=== PATIENT | male | born 1970 | race Caucasian/White ===

== ENCOUNTER 2017-11-26 10:19 | Inpatient (IN) | payer OTHER ==
[2017-11-26] MEDS: NS 1,000 ML IV ×2 (11:58→13:35)
[2017-11-26] MEDS: MORPHINE 4 MG/ML 1ML VIAL/SYRINGE (J2270) IV ×2 (11:58→13:36)
[2017-11-26 12:38] LABS: BASO # 0.2 10^3/uL (0.0-0.2); BASO % 2.2 % (0.0-1.0); EOS # 0.3 10^3/uL (0.0-0.50); EOS % 3.3 % (0.0-3.0); HEMATOCRIT 26.1 % (42.0-52.0); HEMOGLOBIN 9.1 g/dl (13.5-17.5); LYMPH # 1.6 10^3/uL (1.5-4.5); LYMPH % 17.9 % (24.0-44.0); MEAN CORPUSCULAR HEMOGLOBIN 34.5 pg (27.0-33.0); MEAN CORPUSCULAR HGB CONC 34.9 g/dl (32.0-36.5); MEAN CORPUSCULAR VOLUME 98.9 fl (80.0-96.0); MONO # 1.3 10^3/uL (0.0-0.8); MONO % 14.7 % (0.0-5.0); NEUTROPHILS # 5.5 10^3/uL (1.8-7.7); NEUTROPHILS % 60.9 % (36.0-66.0); PLATELET COUNT, AUTOMATED 136 10^3/uL (150-450); RED BLOOD COUNT 2.64 10^6/uL (4.30-6.10); RED CELL DISTRIBUTION WIDTH 22.1 % (11.5-14.5); WHITE BLOOD COUNT 9.1 10^3/uL (4.0-10.0)
[2017-11-26 12:57] LABS: LACTIC ACID SEPSIS PROTOCOL 1.7 MMOL/L (0.4-2.0)
[2017-11-26 13:34] LABS: ALBUMIN/GLOBULIN RATIO 0.33 (1.00-1.93); ALKALINE PHOSPHATASE 75 U/L (45-117); ALT/SGPT 36 U/L (12-78); ANION GAP 12 MEQ/L (8-16); AST/SGOT 96 U/L (7-37); BILIRUBIN,DIRECT 2.4 MG/DL (0.0-0.2); BILIRUBIN,TOTAL 4.6 MG/DL (0.2-1.0); BLOOD UREA NITROGEN 4 MG/DL (7-18); CALCIUM LEVEL 7.4 MG/DL (8.5-10.1); CARBON DIOXIDE LEVEL 20 MEQ/L (21-32); CHLORIDE LEVEL 95 MEQ/L (98-107); CREATININE FOR GFR 0.54 MG/DL (0.70-1.30); GLOMERULAR FILTRATION RATE > 60.0 (>60); GLUCOSE, FASTING 89 MG/DL (70-100); LIPASE 173 U/L (73-393); POTASSIUM SERUM 3.8 MEQ/L (3.5-5.1); SODIUM LEVEL 127 MEQ/L (136-145)
[2017-11-26] MEDS ORDERED: ISOVUE-370 76% 100ML VIAL (Q9967) As Ordered (13:35)
[2017-11-26 14:55] LABS: KETONE, URINE AUTO RFX NEGATIVE (NEGATIVE); LEUKOCYTE ESTERASE UR AUTO RFX NEGATIVE (NEGATIVE); NITRITE, URINE AUTO RFX NEGATIVE (NEGATIVE); RBC, URINE AUTO RFX 1 /HPF (0-3); SPECIFIC GRAVITY UR AUTO RFX 1.018 (1.002-1.035); SQUAM EPITHELIAL CELL UR AURFX 0 /HPF (0-6); WBC, URINE AUTO RFX 1 /HPF (0-3)
[2017-11-26] MEDS ORDERED: LORazepam 2 MG TAB PO (15:30)
[2017-11-26] MEDS: HYDROMORPHONE HCL 0.5 MG/ 0.5 ML SYRINGE (J1170 PER 1) IV (15:33)
[2017-11-26] MEDS: NICOTINE 21MG/24HR 1 EA TRANSDERMAL TD (16:00)
[2017-11-26 16:13] LABS: INR 1.65; PROTHROMBIN TIME 19.8 SECONDS (12.1-14.4)
[2017-11-26] MEDS: diphenhydrAMINE INJ 50MG/ML VIAL (J1200) IV (16:14)
[2017-11-26] MEDS: OXAZEPAM 15 MG CAP PO (16:15)
[2017-11-26] MEDS: FOLIC ACID 1 MG TAB PO (16:15)
[2017-11-26] MEDS: MULTIVITAMINS/MINERALS THERAP 1 TAB PO (16:15)
[2017-11-26] MEDS ORDERED: FUROSEMIDE 20 MG/2 ML VIAL (J1940) IV (17:00)
[2017-11-26] MEDS ORDERED: ONDANSETRON 4MG/2ML VIAL (J2405) IV (17:30)
[2017-11-26] MEDS: FUROSEMIDE 40 MG/4 ML VIAL (J1940) IV (18:42)
[2017-11-26] MEDS: cefTRIAXone SOD 1 GM in D5W MINI-BAG PLUS 50 ML IV (18:43)
[2017-11-26 19:59] LABS: AMMONIA 43 uMOL/L (<32)
[2017-11-26 20:10] LABS: ANION GAP 10 MEQ/L (8-16); BLOOD UREA NITROGEN 2 MG/DL (7-18); CALCIUM LEVEL 7.1 MG/DL (8.5-10.1); CARBON DIOXIDE LEVEL 22 MEQ/L (21-32); CHLORIDE LEVEL 99 MEQ/L (98-107); CREATININE FOR GFR 0.46 MG/DL (0.70-1.30); FREE THYROXINE INDEX 2.3 % (1.4-3.8); GLOMERULAR FILTRATION RATE > 60.0 (>60); GLUCOSE, FASTING 95 MG/DL (70-100); POTASSIUM SERUM 3.1 MEQ/L (3.5-5.1); SODIUM LEVEL 131 MEQ/L (136-145); T UPTAKE 41 % (33-40); THYROXINE (T4) 5.7 UG/DL (4.5-12.0)
[2017-11-26] MEDS: SENOKOT S TAB PO (20:25)
[2017-11-26] MEDS: THIAMINE 100 MG TAB PO (20:25)
[2017-11-26] MEDS: OXAZEPAM 10 MG CAP PO (20:26)
[2017-11-26] MEDS: PANTOPRAZOLE 40MG TAB (PROTONIX) PO (20:26)
[2017-11-26] MEDS ORDERED: THIAMINE 100 MG TAB PO (21:00)
[2017-11-26] MEDS: POTASSIUM CHLORIDE 10 MEQ SR TABLET PO (22:06)
[2017-11-26 23:16] LABS: TYPE AND SCREEN 1
[2017-11-27 00:20] LABS: ANION GAP 8 MEQ/L (8-16); BLOOD UREA NITROGEN 3 MG/DL (7-18); CALCIUM LEVEL 7.1 MG/DL (8.5-10.1); CARBON DIOXIDE LEVEL 23 MEQ/L (21-32); CHLORIDE LEVEL 100 MEQ/L (98-107); CREATININE FOR GFR 0.44 MG/DL (0.70-1.30); GLOMERULAR FILTRATION RATE > 60.0 (>60); GLUCOSE, FASTING 81 MG/DL (70-100); SODIUM LEVEL 131 MEQ/L (136-145)
[2017-11-27] MEDS: OXAZEPAM 15 MG CAP PO ×4 (00:57→18:04)
[2017-11-27 05:09] LABS: TYPE AND SCREEN 1
[2017-11-27 05:27] LABS: HEMATOCRIT 23.1 % (42.0-52.0); HEMOGLOBIN 7.9 g/dl (13.5-17.5); MEAN CORPUSCULAR HEMOGLOBIN 34.2 pg (27.0-33.0); MEAN CORPUSCULAR HGB CONC 34.2 g/dl (32.0-36.5); PLATELET COUNT, AUTOMATED 121 10^3/uL (150-450); RED BLOOD COUNT 2.31 10^6/uL (4.30-6.10); RED CELL DISTRIBUTION WIDTH 22.4 % (11.5-14.5)
[2017-11-27 05:35] LABS: INR 1.59; PROTHROMBIN TIME 19.2 SECONDS (12.1-14.4)
[2017-11-27 05:58] LABS: ALBUMIN 2.6 GM/DL (3.2-5.2); ALBUMIN/GLOBULIN RATIO 0.49 (1.00-1.93); ALKALINE PHOSPHATASE 63 U/L (45-117); ALT/SGPT 32 U/L (12-78); ANION GAP 10 MEQ/L (8-16); AST/SGOT 68 U/L (7-37); BILIRUBIN,TOTAL 4.4 MG/DL (0.2-1.0); BLOOD UREA NITROGEN 3 MG/DL (7-18); CALCIUM LEVEL 7.3 MG/DL (8.5-10.1); CARBON DIOXIDE LEVEL 22 MEQ/L (21-32); CHLORIDE LEVEL 100 MEQ/L (98-107); CREATININE FOR GFR 0.42 MG/DL (0.70-1.30); GLOMERULAR FILTRATION RATE > 60.0 (>60); GLUCOSE, FASTING 87 MG/DL (70-100); MAGNESIUM LEVEL 1.2 MG/DL (1.8-2.4); POTASSIUM SERUM 3.6 MEQ/L (3.5-5.1); SODIUM LEVEL 132 MEQ/L (136-145); TOTAL PROTEIN 7.9 GM/DL (6.4-8.2)
[2017-11-27] MEDS: MAG SULF 1GM/100ML (MAG RUN) 1 GM in APPROPRIATE DILUENT 1 EA IV ×2 (06:36→08:58)
[2017-11-27 08:00] LABS: PROTHROMBIN TIME 17.4 SECONDS (12.1-14.4)
[2017-11-27] MEDS: FUROSEMIDE 20 MG/2 ML VIAL (J1940) IV ×2 (08:58→18:04)
[2017-11-27] MEDS: NICOTINE 21MG/24HR 1 EA TRANSDERMAL TD (08:58)
[2017-11-27] MEDS: THIAMINE 100 MG TAB PO (08:58)
[2017-11-27] MEDS: SPIRONOLACTONE 25 MG TAB PO (08:59)
[2017-11-27] MEDS: PANTOPRAZOLE 40MG TAB (PROTONIX) PO (08:59)
[2017-11-27] MEDS: SENOKOT S TAB PO ×2 (08:59→21:15)
[2017-11-27] MEDS: POTASSIUM CHLORIDE 10 MEQ SR TABLET PO ×3 (08:59→21:16)
[2017-11-27] MEDS: MULTIVITAMINS/MINERALS THERAP 1 TAB PO (08:59)
[2017-11-27] MEDS: FOLIC ACID 1 MG TAB PO (08:59)
[2017-11-27 09:44] LABS: TYPE AND SCREEN 1
[2017-11-27] MEDS: SLF 3 ML SYR IV ×2 (11:28→21:16)
[2017-11-27] MEDS ORDERED: SLF 3 ML SYR IV (11:30)
[2017-11-27] MEDS: MORPHINE 4 MG/ML 1ML VIAL/SYRINGE (J2270) IV ×2 (11:36→18:05)
[2017-11-27 13:16] LABS: ANION GAP 9 MEQ/L (8-16); BLOOD UREA NITROGEN 3 MG/DL (7-18); CALCIUM LEVEL 7.5 MG/DL (8.5-10.1); CARBON DIOXIDE LEVEL 26 MEQ/L (21-32); CHLORIDE LEVEL 99 MEQ/L (98-107); CREATININE FOR GFR 0.54 MG/DL (0.70-1.30); GLOMERULAR FILTRATION RATE > 60.0 (>60); GLUCOSE, FASTING 153 MG/DL (70-100); POTASSIUM SERUM 3.1 MEQ/L (3.5-5.1); SODIUM LEVEL 134 MEQ/L (136-145)
[2017-11-27 14:10] LABS: MAGNESIUM LEVEL 1.8 MG/DL (1.8-2.4)
[2017-11-27 14:27] LABS: HEPATITIS C VIRUS ABY INDEX > 11.0 INDEX (<0.8)
[2017-11-27 17:10] LABS: SOURCE, BODY FLUID ALBUMIN ASCITES; SOURCE, BODY FLUID GLUCOSE ASCITES; SOURCE, BODY FLUID TOT PROTEIN ASCITES; TOTAL PROTEIN, BODY FLUID 1.9 G/DL (NOT ESTABLISHED)
[2017-11-27 17:16] LABS: APPEARANCE, BODY FLUID CLEAR (CLEAR); ASCITES FL COLOR YELLOW (COLORLESS); SOURCE, BODY FLUID ASCITES; SPEC. GRAVITY BODY FLUIDS 1.015 (NOT ESTABLISHED)
[2017-11-27 17:18] LABS: OSMOLALITY URINE 326 MOSM/KG (500-800)
[2017-11-27 17:26] LABS: BF MONONUCLEAR CELL % 78.2 % (0-0); BF POLYMORPHONUCLEAR CELL % 21.8 % (0-0); RBC BODY FLUID < 2 10^3/uL (<2); WBC BODY FLUID 69 /uL (0-10)
[2017-11-27 17:29] LABS: BF DIFF IF INDICATED? YES (NO)
[2017-11-27] MEDS: cefTRIAXone SOD 1 GM in D5W MINI-BAG PLUS 50 ML IV (18:03)
[2017-11-27] MEDS: MAGNESIUM OXIDE 400 MG TAB (MAG-OX) PO (18:04)
[2017-11-27 18:18] LABS: CHLORIDE,RANDOM URINE 135 MEQ/L; CREATININE,RANDOM URINE 40.3 MG/DL; SODIUM,RANDOM URINE 89 MEQ/L; TOTAL PROTEIN,RANDOM URINE 10.5 MG/DL (0.0-12.0)
[2017-11-27 18:26] LABS: ANION GAP 9 MEQ/L (8-16); BLOOD UREA NITROGEN 4 MG/DL (7-18); CALCIUM LEVEL 7.4 MG/DL (8.5-10.1); CARBON DIOXIDE LEVEL 24 MEQ/L (21-32); CHLORIDE LEVEL 100 MEQ/L (98-107); CREATININE FOR GFR 0.75 MG/DL (0.70-1.30); GLOMERULAR FILTRATION RATE > 60.0 (>60); GLUCOSE, FASTING 161 MG/DL (70-100); POTASSIUM SERUM 3.6 MEQ/L (3.5-5.1); SODIUM LEVEL 133 MEQ/L (136-145)
[2017-11-27] MEDS: EUCERIN 120GM CREAM TOP (21:15)
[2017-11-28 00:16] LABS: ANION GAP 7 MEQ/L (8-16); BLOOD UREA NITROGEN 5 MG/DL (7-18); CALCIUM LEVEL 7.5 MG/DL (8.5-10.1); CARBON DIOXIDE LEVEL 25 MEQ/L (21-32); CHLORIDE LEVEL 101 MEQ/L (98-107); CREATININE FOR GFR 0.57 MG/DL (0.70-1.30); GLOMERULAR FILTRATION RATE > 60.0 (>60); GLUCOSE, FASTING 99 MG/DL (70-100); POTASSIUM SERUM 3.8 MEQ/L (3.5-5.1); SODIUM LEVEL 133 MEQ/L (136-145)
[2017-11-28] MEDS: OXAZEPAM 15 MG CAP PO ×4 (00:37→17:08)
[2017-11-28] MEDS: MORPHINE 4 MG/ML 1ML VIAL/SYRINGE (J2270) IV ×3 (00:49→18:49)
[2017-11-28] MEDS: SLF 3 ML SYR IV ×3 (05:48→21:10)
[2017-11-28 05:56] LABS: HEMOGLOBIN 7.7 g/dl (13.5-17.5); MEAN CORPUSCULAR HEMOGLOBIN 34.2 pg (27.0-33.0); MEAN CORPUSCULAR HGB CONC 33.5 g/dl (32.0-36.5); MEAN CORPUSCULAR VOLUME 102.2 fl (80.0-96.0); PLATELET COUNT, AUTOMATED 115 10^3/uL (150-450); RED BLOOD COUNT 2.25 10^6/uL (4.30-6.10); RED CELL DISTRIBUTION WIDTH 22.4 % (11.5-14.5); WHITE BLOOD COUNT 6.3 10^3/uL (4.0-10.0)
[2017-11-28 06:06] LABS: INR 1.69; PROTHROMBIN TIME 20.2 SECONDS (12.1-14.4)
[2017-11-28 06:23] LABS: ALBUMIN 2.4 GM/DL (3.2-5.2); ALBUMIN/GLOBULIN RATIO 0.49 (1.00-1.93); ALKALINE PHOSPHATASE 72 U/L (45-117); ALT/SGPT 28 U/L (12-78); ANION GAP 8 MEQ/L (8-16); AST/SGOT 50 U/L (7-37); BILIRUBIN,TOTAL 2.5 MG/DL (0.2-1.0); BLOOD UREA NITROGEN 4 MG/DL (7-18); CALCIUM LEVEL 7.5 MG/DL (8.5-10.1); CARBON DIOXIDE LEVEL 26 MEQ/L (21-32); CHLORIDE LEVEL 101 MEQ/L (98-107); CREATININE FOR GFR 0.62 MG/DL (0.70-1.30); GLOMERULAR FILTRATION RATE > 60.0 (>60); GLUCOSE, FASTING 94 MG/DL (70-100); MAGNESIUM LEVEL 1.3 MG/DL (1.8-2.4); POTASSIUM SERUM 3.8 MEQ/L (3.5-5.1); SODIUM LEVEL 135 MEQ/L (136-145); TOTAL PROTEIN 7.3 GM/DL (6.4-8.2)
[2017-11-28] MEDS: MAG SULF 1GM/100ML (MAG RUN) 1 GM in APPROPRIATE DILUENT 1 EA IV ×3 (08:38→10:52)
[2017-11-28] MEDS: NICOTINE 21MG/24HR 1 EA TRANSDERMAL TD (09:12)
[2017-11-28] MEDS: FUROSEMIDE 20 MG/2 ML VIAL (J1940) IV ×2 (09:14→17:09)
[2017-11-28] MEDS: SENOKOT S TAB PO ×2 (09:17→21:10)
[2017-11-28] MEDS: EUCERIN 120GM CREAM TOP ×2 (09:17→21:08)
[2017-11-28] MEDS: MULTIVITAMINS/MINERALS THERAP 1 TAB PO (09:17)
[2017-11-28] MEDS: SPIRONOLACTONE 25 MG TAB PO (09:18)
[2017-11-28] MEDS: THIAMINE 100 MG TAB PO (09:18)
[2017-11-28] MEDS: FOLIC ACID 1 MG TAB PO (09:18)
[2017-11-28] MEDS: POTASSIUM CHLORIDE 10 MEQ SR TABLET PO ×2 (09:18→21:09)
[2017-11-28] MEDS: PANTOPRAZOLE 40MG TAB (PROTONIX) PO (09:18)
[2017-11-28 09:46] LABS: AMMONIA 72 uMOL/L (<32)
[2017-11-28 12:41] LABS: ANION GAP 7 MEQ/L (8-16); BLOOD UREA NITROGEN 5 MG/DL (7-18); CALCIUM LEVEL 7.7 MG/DL (8.5-10.1); CARBON DIOXIDE LEVEL 27 MEQ/L (21-32); CHLORIDE LEVEL 101 MEQ/L (98-107); CREATININE FOR GFR 0.61 MG/DL (0.70-1.30); GLOMERULAR FILTRATION RATE > 60.0 (>60); GLUCOSE, FASTING 103 MG/DL (70-100); POTASSIUM SERUM 4.1 MEQ/L (3.5-5.1); SODIUM LEVEL 135 MEQ/L (136-145)
[2017-11-28 14:11] LABS: IMMEDIATE SPIN CROSSMATCH 1 1
[2017-11-28] MEDS: LACTULOSE 20 GM/30 ML SYRUP UD PO ×2 (14:12→21:10)
[2017-11-28] MEDS: cefTRIAXone SOD 1 GM in D5W MINI-BAG PLUS 50 ML IV (17:08)
[2017-11-28 18:03] LABS: MAGNESIUM LEVEL 1.9 MG/DL (1.8-2.4)
[2017-11-28] MEDS: MAGNESIUM OXIDE 400 MG TAB (MAG-OX) PO (18:39)
[2017-11-29] MEDS: OXAZEPAM 15 MG CAP PO ×3 (00:28→17:35)
[2017-11-29] MEDS: MORPHINE 4 MG/ML 1ML VIAL/SYRINGE (J2270) IV ×2 (02:39→07:57)
[2017-11-29] MEDS ORDERED: LORazepam 2 MG TAB PO (03:00)
[2017-11-29] MEDS: LACTULOSE 20 GM/30 ML SYRUP UD PO ×3 (05:26→20:47)
[2017-11-29] MEDS: SLF 3 ML SYR IV ×3 (05:28→21:00)
[2017-11-29 06:20] LABS: HEMATOCRIT 26.2 % (42.0-52.0); HEMOGLOBIN 8.8 g/dl (13.5-17.5); MEAN CORPUSCULAR HEMOGLOBIN 33.6 pg (27.0-33.0); MEAN CORPUSCULAR HGB CONC 33.6 g/dl (32.0-36.5); PLATELET COUNT, AUTOMATED 123 10^3/uL (150-450); RED BLOOD COUNT 2.62 10^6/uL (4.30-6.10); RED CELL DISTRIBUTION WIDTH 23.5 % (11.5-14.5); WHITE BLOOD COUNT 7.4 10^3/uL (4.0-10.0)
[2017-11-29 06:27] LABS: INR 1.72; PROTHROMBIN TIME 20.5 SECONDS (12.1-14.4)
[2017-11-29 06:42] LABS: AMMONIA 79 uMOL/L (<32)
[2017-11-29 06:48] LABS: ALBUMIN 2.4 GM/DL (3.2-5.2); ALBUMIN/GLOBULIN RATIO 0.49 (1.00-1.93); ALKALINE PHOSPHATASE 78 U/L (45-117); ALT/SGPT 32 U/L (12-78); ANION GAP 7 MEQ/L (8-16); AST/SGOT 70 U/L (7-37); BLOOD UREA NITROGEN 5 MG/DL (7-18); CARBON DIOXIDE LEVEL 27 MEQ/L (21-32); CHLORIDE LEVEL 102 MEQ/L (98-107); CREATININE FOR GFR 0.61 MG/DL (0.70-1.30); GLOMERULAR FILTRATION RATE > 60.0 (>60); GLUCOSE, FASTING 109 MG/DL (70-100); MAGNESIUM LEVEL 1.7 MG/DL (1.8-2.4); POTASSIUM SERUM 4.2 MEQ/L (3.5-5.1); SODIUM LEVEL 136 MEQ/L (136-145); TOTAL PROTEIN 7.3 GM/DL (6.4-8.2)
[2017-11-29] MEDS: SENOKOT S TAB PO ×2 (09:00→20:47)
[2017-11-29] MEDS: IPRATROPIUM 0.5MG/ALBUTEROL 2.5MG INH SOL UD 3ML (DUONEB)(J7620) NEB (09:08)
[2017-11-29] MEDS: FOLIC ACID 1 MG TAB PO (09:20)
[2017-11-29] MEDS: rifAXIMin 550 MG TAB (XIFAXAN) PO ×2 (09:20→20:47)
[2017-11-29] MEDS: PANTOPRAZOLE 40MG TAB (PROTONIX) PO (09:20)
[2017-11-29] MEDS: SPIRONOLACTONE 25 MG TAB PO (09:21)
[2017-11-29] MEDS: MULTIVITAMINS/MINERALS THERAP 1 TAB PO (09:21)
[2017-11-29] MEDS: THIAMINE 100 MG TAB PO (09:21)
[2017-11-29] MEDS: MAG SULF 1GM/100ML (MAG RUN) 1 GM in APPROPRIATE DILUENT 1 EA IV ×2 (09:22→10:37)
[2017-11-29] MEDS: POTASSIUM CHLORIDE 10 MEQ SR TABLET PO ×2 (09:22→20:47)
[2017-11-29] MEDS: NICOTINE 21MG/24HR 1 EA TRANSDERMAL TD (09:22)
[2017-11-29] MEDS: FUROSEMIDE 20 MG/2 ML VIAL (J1940) IV ×2 (09:23→17:34)
[2017-11-29] MEDS: EUCERIN 120GM CREAM TOP ×2 (09:23→20:47)
[2017-11-29] MEDS: cefTRIAXone SOD 1 GM in D5W MINI-BAG PLUS 50 ML IV (17:35)
[2017-11-30] MEDS: LACTULOSE 20 GM/30 ML SYRUP UD PO ×3 (05:33→20:57)
[2017-11-30] MEDS: SLF 3 ML SYR IV ×3 (05:33→21:38)
[2017-11-30] MEDS: OXAZEPAM 15 MG CAP PO ×2 (05:33→17:04)
[2017-11-30] MEDS: MORPHINE 4 MG/ML 1ML VIAL/SYRINGE (J2270) IV ×2 (05:38→20:54)
[2017-11-30 05:57] LABS: HEMATOCRIT 26.8 % (42.0-52.0); HEMOGLOBIN 9.1 g/dl (13.5-17.5); MEAN CORPUSCULAR HEMOGLOBIN 33.2 pg (27.0-33.0); MEAN CORPUSCULAR VOLUME 97.8 fl (80.0-96.0); PLATELET COUNT, AUTOMATED 144 10^3/uL (150-450); RED BLOOD COUNT 2.74 10^6/uL (4.30-6.10); WHITE BLOOD COUNT 8.3 10^3/uL (4.0-10.0)
[2017-11-30 06:04] LABS: INR 1.79; PROTHROMBIN TIME 21.1 SECONDS (12.1-14.4)
[2017-11-30 06:16] LABS: AMMONIA 48 uMOL/L (<32)
[2017-11-30 06:18] LABS: ALBUMIN 2.4 GM/DL (3.2-5.2); ALBUMIN/GLOBULIN RATIO 0.48 (1.00-1.93); ALKALINE PHOSPHATASE 76 U/L (45-117); ALT/SGPT 32 U/L (12-78); ANION GAP 7 MEQ/L (8-16); AST/SGOT 68 U/L (7-37); BILIRUBIN,TOTAL 2.5 MG/DL (0.2-1.0); BLOOD UREA NITROGEN 6 MG/DL (7-18); CALCIUM LEVEL 8.1 MG/DL (8.5-10.1); CARBON DIOXIDE LEVEL 28 MEQ/L (21-32); CHLORIDE LEVEL 100 MEQ/L (98-107); GLOMERULAR FILTRATION RATE > 60.0 (>60); GLUCOSE, FASTING 85 MG/DL (70-100); MAGNESIUM LEVEL 1.3 MG/DL (1.8-2.4); POTASSIUM SERUM 4.1 MEQ/L (3.5-5.1); SODIUM LEVEL 135 MEQ/L (136-145); TOTAL PROTEIN 7.4 GM/DL (6.4-8.2)
[2017-11-30] MEDS: FOLIC ACID 1 MG TAB PO (08:23)
[2017-11-30] MEDS: THIAMINE 100 MG TAB PO (08:23)
[2017-11-30] MEDS: PANTOPRAZOLE 40MG TAB (PROTONIX) PO (08:23)
[2017-11-30] MEDS: rifAXIMin 550 MG TAB (XIFAXAN) PO ×2 (08:23→20:37)
[2017-11-30] MEDS: POTASSIUM CHLORIDE 10 MEQ SR TABLET PO ×2 (08:23→20:38)
[2017-11-30] MEDS: SPIRONOLACTONE 25 MG TAB PO (08:23)
[2017-11-30] MEDS: FUROSEMIDE 20 MG/2 ML VIAL (J1940) IV ×2 (08:24→17:04)
[2017-11-30] MEDS: MULTIVITAMINS/MINERALS THERAP 1 TAB PO (08:24)
[2017-11-30] MEDS: EUCERIN 120GM CREAM TOP ×2 (08:24→20:38)
[2017-11-30] MEDS: SENOKOT S TAB PO ×2 (08:24→20:37)
[2017-11-30] MEDS: NICOTINE 21MG/24HR 1 EA TRANSDERMAL TD (08:24)
[2017-11-30] MEDS: MAG SULF 1GM/100ML (MAG RUN) 1 GM in APPROPRIATE DILUENT 1 EA IV ×3 (11:19→13:17)
[2017-11-30 15:06] LABS: HBV HBV DNA not detected IU/mL (.); HBVCOREDIFF1 Negative (Negative); HBVCOREDIFF2 Negative (Negative); HCV RNA NAA QUALITATIVE Positive (Negative); HEPATITIS BE ANTIBODY Negative (Negative); HEPATITIS BE ANTIGEN Negative (Negative)
[2017-11-30] MEDS: cefTRIAXone SOD 1 GM in D5W MINI-BAG PLUS 50 ML IV (17:04)
[2017-12-01] MEDS: OXAZEPAM 15 MG CAP PO (05:45)
[2017-12-01] MEDS: SLF 3 ML SYR IV ×3 (05:46→22:00)
[2017-12-01] MEDS: LACTULOSE 20 GM/30 ML SYRUP UD PO ×4 (05:46→22:00)
[2017-12-01 06:01] LABS: HEMATOCRIT 26.9 % (42.0-52.0); HEMOGLOBIN 9.1 g/dl (13.5-17.5); MEAN CORPUSCULAR HEMOGLOBIN 33.8 pg (27.0-33.0); MEAN CORPUSCULAR HGB CONC 33.8 g/dl (32.0-36.5); PLATELET COUNT, AUTOMATED 143 10^3/uL (150-450); RED BLOOD COUNT 2.69 10^6/uL (4.30-6.10); RED CELL DISTRIBUTION WIDTH 22.6 % (11.5-14.5); WHITE BLOOD COUNT 7.5 10^3/uL (4.0-10.0)
[2017-12-01 06:15] LABS: INR 1.89
[2017-12-01 06:16] LABS: AMMONIA 68 uMOL/L (<32)
[2017-12-01 06:24] LABS: ALBUMIN 2.3 GM/DL (3.2-5.2); ALBUMIN/GLOBULIN RATIO 0.46 (1.00-1.93); ALKALINE PHOSPHATASE 83 U/L (45-117); ALT/SGPT 34 U/L (12-78); ANION GAP 6 MEQ/L (8-16); AST/SGOT 67 U/L (7-37); BILIRUBIN,TOTAL 2.2 MG/DL (0.2-1.0); BLOOD UREA NITROGEN 7 MG/DL (7-18); CALCIUM LEVEL 8.3 MG/DL (8.5-10.1); CARBON DIOXIDE LEVEL 26 MEQ/L (21-32); CHLORIDE LEVEL 102 MEQ/L (98-107); GLOMERULAR FILTRATION RATE > 60.0 (>60); GLUCOSE, FASTING 86 MG/DL (70-100); MAGNESIUM LEVEL 1.7 MG/DL (1.8-2.4); POTASSIUM SERUM 4.5 MEQ/L (3.5-5.1); SODIUM LEVEL 134 MEQ/L (136-145); TOTAL PROTEIN 7.3 GM/DL (6.4-8.2)
[2017-12-01] MEDS: SENOKOT S TAB PO ×2 (08:22→20:09)
[2017-12-01] MEDS: MORPHINE 4 MG/ML 1ML VIAL/SYRINGE (J2270) IV ×2 (08:42→20:20)
[2017-12-01] MEDS: FOLIC ACID 1 MG TAB PO (08:44)
[2017-12-01] MEDS: POTASSIUM CHLORIDE 10 MEQ SR TABLET PO ×2 (08:44→20:10)
[2017-12-01] MEDS: rifAXIMin 550 MG TAB (XIFAXAN) PO ×2 (08:44→20:09)
[2017-12-01] MEDS: EUCERIN 120GM CREAM TOP ×2 (08:44→21:00)
[2017-12-01] MEDS: PANTOPRAZOLE 40MG TAB (PROTONIX) PO (08:44)
[2017-12-01] MEDS: SPIRONOLACTONE 25 MG TAB PO (08:44)
[2017-12-01] MEDS: THIAMINE 100 MG TAB PO (08:44)
[2017-12-01] MEDS: MULTIVITAMINS/MINERALS THERAP 1 TAB PO (08:44)
[2017-12-01] MEDS: FUROSEMIDE 20 MG/2 ML VIAL (J1940) IV (08:45)
[2017-12-01] MEDS: NICOTINE 21MG/24HR 1 EA TRANSDERMAL TD (08:55)
[2017-12-02 05:48] LABS: HEMATOCRIT 26.6 % (42.0-52.0); MEAN CORPUSCULAR HEMOGLOBIN 32.7 pg (27.0-33.0); MEAN CORPUSCULAR HGB CONC 33.8 g/dl (32.0-36.5); MEAN CORPUSCULAR VOLUME 96.7 fl (80.0-96.0); PLATELET COUNT, AUTOMATED 141 10^3/uL (150-450); RED BLOOD COUNT 2.75 10^6/uL (4.30-6.10); RED CELL DISTRIBUTION WIDTH 21.9 % (11.5-14.5); WHITE BLOOD COUNT 7.3 10^3/uL (4.0-10.0)
[2017-12-02 05:58] LABS: INR 1.88; PROTHROMBIN TIME 21.9 SECONDS (12.1-14.4)
[2017-12-02 06:05] LABS: ALBUMIN 2.2 GM/DL (3.2-5.2); ALBUMIN/GLOBULIN RATIO 0.39 (1.00-1.93); ALKALINE PHOSPHATASE 68 U/L (45-117); ALT/SGPT 36 U/L (12-78); ANION GAP 6 MEQ/L (8-16); AST/SGOT 61 U/L (7-37); BILIRUBIN,TOTAL 2.5 MG/DL (0.2-1.0); BLOOD UREA NITROGEN 6 MG/DL (7-18); CALCIUM LEVEL 8.6 MG/DL (8.5-10.1); CARBON DIOXIDE LEVEL 25 MEQ/L (21-32); CHLORIDE LEVEL 102 MEQ/L (98-107); CREATININE FOR GFR 0.52 MG/DL (0.70-1.30); GLOMERULAR FILTRATION RATE > 60.0 (>60); GLUCOSE, FASTING 82 MG/DL (70-100); MAGNESIUM LEVEL 1.1 MG/DL (1.8-2.4); POTASSIUM SERUM 4.5 MEQ/L (3.5-5.1); SODIUM LEVEL 133 MEQ/L (136-145); TOTAL PROTEIN 7.8 GM/DL (6.4-8.2)
[2017-12-02 06:08] LABS: AMMONIA 48 uMOL/L (<32)
[2017-12-02] MEDS: LACTULOSE 20 GM/30 ML SYRUP UD PO ×3 (06:14→21:01)
[2017-12-02] MEDS: SLF 3 ML SYR IV ×3 (06:17→21:00)
[2017-12-02] MEDS: NICOTINE 21MG/24HR 1 EA TRANSDERMAL TD (08:26)
[2017-12-02] MEDS: MORPHINE 4 MG/ML 1ML VIAL/SYRINGE (J2270) IV ×2 (08:26→17:10)
[2017-12-02] MEDS: FOLIC ACID 1 MG TAB PO (08:27)
[2017-12-02] MEDS: THIAMINE 100 MG TAB PO (08:27)
[2017-12-02] MEDS: FUROSEMIDE 20 MG TAB PO (08:27)
[2017-12-02] MEDS: POTASSIUM CHLORIDE 10 MEQ SR TABLET PO ×2 (08:27→21:00)
[2017-12-02] MEDS: rifAXIMin 550 MG TAB (XIFAXAN) PO ×2 (08:27→20:59)
[2017-12-02] MEDS: EUCERIN 120GM CREAM TOP ×2 (08:28→21:00)
[2017-12-02] MEDS: PANTOPRAZOLE 40MG TAB (PROTONIX) PO (08:28)
[2017-12-02] MEDS: MULTIVITAMINS/MINERALS THERAP 1 TAB PO (08:28)
[2017-12-02] MEDS: SENOKOT S TAB PO ×2 (08:28→20:59)
[2017-12-02] MEDS: SPIRONOLACTONE 25 MG TAB PO (08:28)
[2017-12-02] MEDS ORDERED: ACETAMINOPHEN 325 MG TAB As Ordered (08:53)
[2017-12-02] MEDS: ACETAMINOPHEN 325 MG TAB PO ×2 (09:00→21:00)
[2017-12-02] MEDS: MAG SULF 1GM/100ML (MAG RUN) 1 GM in APPROPRIATE DILUENT 1 EA IV ×3 (09:10→11:20)
[2017-12-02] MEDS: OXAZEPAM 10 MG CAP PO (21:03)
[2017-12-03] MEDS: SLF 3 ML SYR IV ×3 (03:52→21:52)
[2017-12-03] MEDS: MORPHINE 4 MG/ML 1ML VIAL/SYRINGE (J2270) IV (03:52)
[2017-12-03 05:04] LABS: HEMATOCRIT 28.2 % (42.0-52.0); HEMOGLOBIN 9.7 g/dl (13.5-17.5); MEAN CORPUSCULAR HEMOGLOBIN 33.9 pg (27.0-33.0); MEAN CORPUSCULAR HGB CONC 34.4 g/dl (32.0-36.5); MEAN CORPUSCULAR VOLUME 98.6 fl (80.0-96.0); PLATELET COUNT, AUTOMATED 139 10^3/uL (150-450); RED BLOOD COUNT 2.86 10^6/uL (4.30-6.10); RED CELL DISTRIBUTION WIDTH 21.2 % (11.5-14.5); WHITE BLOOD COUNT 8.3 10^3/uL (4.0-10.0)
[2017-12-03 05:18] LABS: INR 1.87; PROTHROMBIN TIME 21.9 SECONDS (12.1-14.4)
[2017-12-03 05:28] LABS: AMMONIA 41 uMOL/L (<32)
[2017-12-03 05:32] LABS: ALBUMIN 2.4 GM/DL (3.2-5.2); ALBUMIN/GLOBULIN RATIO 0.41 (1.00-1.93); ALKALINE PHOSPHATASE 78 U/L (45-117); ALT/SGPT 37 U/L (12-78); ANION GAP 6 MEQ/L (8-16); AST/SGOT 61 U/L (7-37); BILIRUBIN,TOTAL 2.5 MG/DL (0.2-1.0); BLOOD UREA NITROGEN 7 MG/DL (7-18); CALCIUM LEVEL 8.7 MG/DL (8.5-10.1); CARBON DIOXIDE LEVEL 25 MEQ/L (21-32); CHLORIDE LEVEL 100 MEQ/L (98-107); CREATININE FOR GFR 0.56 MG/DL (0.70-1.30); GLOMERULAR FILTRATION RATE > 60.0 (>60); GLUCOSE, FASTING 87 MG/DL (70-100); MAGNESIUM LEVEL 1.3 MG/DL (1.8-2.4); POTASSIUM SERUM 4.4 MEQ/L (3.5-5.1); SODIUM LEVEL 131 MEQ/L (136-145); TOTAL PROTEIN 8.2 GM/DL (6.4-8.2)
[2017-12-03] MEDS: LACTULOSE 20 GM/30 ML SYRUP UD PO ×3 (05:35→21:53)
[2017-12-03] MEDS: EUCERIN 120GM CREAM TOP ×2 (08:23→21:53)
[2017-12-03] MEDS: POTASSIUM CHLORIDE 10 MEQ SR TABLET PO ×2 (08:23→21:50)
[2017-12-03] MEDS: NICOTINE 21MG/24HR 1 EA TRANSDERMAL TD (08:23)
[2017-12-03] MEDS: SPIRONOLACTONE 25 MG TAB PO (08:24)
[2017-12-03] MEDS: MAGNESIUM OXIDE 400 MG TAB (MAG-OX) PO ×2 (08:24→21:51)
[2017-12-03] MEDS: THIAMINE 100 MG TAB PO (08:24)
[2017-12-03] MEDS: PANTOPRAZOLE 40MG TAB (PROTONIX) PO (08:24)
[2017-12-03] MEDS: rifAXIMin 550 MG TAB (XIFAXAN) PO ×2 (08:24→21:51)
[2017-12-03] MEDS: FOLIC ACID 1 MG TAB PO (08:25)
[2017-12-03] MEDS: SENOKOT S TAB PO ×2 (08:25→21:00)
[2017-12-03] MEDS: FUROSEMIDE 20 MG TAB PO (08:25)
[2017-12-03] MEDS: MULTIVITAMINS/MINERALS THERAP 1 TAB PO (08:25)
[2017-12-03] MEDS: OXAZEPAM 10 MG CAP PO ×2 (08:36→21:51)
[2017-12-04 05:18] LABS: AMMONIA 78 uMOL/L (<32)
[2017-12-04] MEDS: SLF 3 ML SYR IV ×3 (06:29→20:50)
[2017-12-04] MEDS: LACTULOSE 20 GM/30 ML SYRUP UD PO ×3 (06:30→21:26)
[2017-12-04] MEDS: THIAMINE 100 MG TAB PO (08:13)
[2017-12-04] MEDS: rifAXIMin 550 MG TAB (XIFAXAN) PO ×2 (08:13→20:48)
[2017-12-04] MEDS: POTASSIUM CHLORIDE 10 MEQ SR TABLET PO ×2 (08:13→20:48)
[2017-12-04] MEDS: MULTIVITAMINS/MINERALS THERAP 1 TAB PO (08:13)
[2017-12-04] MEDS: NICOTINE 21MG/24HR 1 EA TRANSDERMAL TD (08:13)
[2017-12-04] MEDS: MAGNESIUM OXIDE 400 MG TAB (MAG-OX) PO ×2 (08:14→20:49)
[2017-12-04] MEDS: PANTOPRAZOLE 40MG TAB (PROTONIX) PO (08:14)
[2017-12-04] MEDS: FOLIC ACID 1 MG TAB PO (08:14)
[2017-12-04] MEDS: SPIRONOLACTONE 25 MG TAB PO (08:14)
[2017-12-04] MEDS: SENOKOT S TAB PO ×2 (08:14→20:48)
[2017-12-04] MEDS: FUROSEMIDE 20 MG TAB PO (08:14)
[2017-12-04] MEDS: EUCERIN 120GM CREAM TOP ×2 (08:15→20:50)
[2017-12-04] MEDS: OXAZEPAM 10 MG CAP PO ×2 (08:20→20:54)
[2017-12-04 08:29] LABS: HEMATOCRIT 26.4 % (42.0-52.0); MEAN CORPUSCULAR HEMOGLOBIN 33.5 pg (27.0-33.0); MEAN CORPUSCULAR HGB CONC 34.1 g/dl (32.0-36.5); MEAN CORPUSCULAR VOLUME 98.1 fl (80.0-96.0); PLATELET COUNT, AUTOMATED 141 10^3/uL (150-450); RED BLOOD COUNT 2.69 10^6/uL (4.30-6.10); RED CELL DISTRIBUTION WIDTH 20.7 % (11.5-14.5); WHITE BLOOD COUNT 8.4 10^3/uL (4.0-10.0)
[2017-12-04 08:55] LABS: ANION GAP 7 MEQ/L (8-16); BLOOD UREA NITROGEN 8 MG/DL (7-18); CALCIUM LEVEL 8.1 MG/DL (8.5-10.1); CARBON DIOXIDE LEVEL 24 MEQ/L (21-32); CHLORIDE LEVEL 101 MEQ/L (98-107); CREATININE FOR GFR 0.51 MG/DL (0.70-1.30); GLOMERULAR FILTRATION RATE > 60.0 (>60); GLUCOSE, FASTING 80 MG/DL (70-100); MAGNESIUM LEVEL 1.1 MG/DL (1.8-2.4); POTASSIUM SERUM 4.4 MEQ/L (3.5-5.1); SODIUM LEVEL 132 MEQ/L (136-145)
[2017-12-04] MEDS: MAG SULF 1GM/100ML (MAG RUN) 1 GM in APPROPRIATE DILUENT 1 EA IV ×3 (11:07→13:12)
[2017-12-05] MEDS: SLF 3 ML SYR IV (05:53)
[2017-12-05] MEDS: LACTULOSE 20 GM/30 ML SYRUP UD PO (06:06)
[2017-12-05 06:42] LABS: HEMATOCRIT 27.9 % (42.0-52.0); HEMOGLOBIN 9.8 g/dl (13.5-17.5); MEAN CORPUSCULAR HEMOGLOBIN 33.8 pg (27.0-33.0); MEAN CORPUSCULAR HGB CONC 35.1 g/dl (32.0-36.5); MEAN CORPUSCULAR VOLUME 96.2 fl (80.0-96.0); PLATELET COUNT, AUTOMATED 139 10^3/uL (150-450); WHITE BLOOD COUNT 8.2 10^3/uL (4.0-10.0)
[2017-12-05 07:11] LABS: ALBUMIN 2.4 GM/DL (3.2-5.2); ALBUMIN/GLOBULIN RATIO 0.41 (1.00-1.93); ALKALINE PHOSPHATASE 87 U/L (45-117); ALT/SGPT 39 U/L (12-78); ANION GAP 9 MEQ/L (8-16); AST/SGOT 67 U/L (7-37); BILIRUBIN,DIRECT 1.5 MG/DL (0.0-0.2); BILIRUBIN,TOTAL 2.5 MG/DL (0.2-1.0); BLOOD UREA NITROGEN 6 MG/DL (7-18); C REACTIVE PROTEIN QUANTITATIV 0.45 MG/DL (0.00-0.30); CALCIUM LEVEL 7.9 MG/DL (8.5-10.1); CARBON DIOXIDE LEVEL 23 MEQ/L (21-32); CHLORIDE LEVEL 99 MEQ/L (98-107); GLOMERULAR FILTRATION RATE > 60.0 (>60); GLUCOSE, FASTING 80 MG/DL (70-100); MAGNESIUM LEVEL 1.2 MG/DL (1.8-2.4); POTASSIUM SERUM 4.2 MEQ/L (3.5-5.1); SODIUM LEVEL 131 MEQ/L (136-145); TOTAL PROTEIN 8.2 GM/DL (6.4-8.2)
[2017-12-05 07:13] LABS: AMMONIA 57 uMOL/L (<32)
[2017-12-05] MEDS: rifAXIMin 550 MG TAB (XIFAXAN) PO (07:48)
[2017-12-05] MEDS: MAGNESIUM OXIDE 400 MG TAB (MAG-OX) PO (07:48)
[2017-12-05] MEDS: POTASSIUM CHLORIDE 10 MEQ SR TABLET PO (07:48)
[2017-12-05] MEDS: NICOTINE 21MG/24HR 1 EA TRANSDERMAL TD (07:48)
[2017-12-05] MEDS: FUROSEMIDE 20 MG TAB PO (07:49)
[2017-12-05] MEDS: FOLIC ACID 1 MG TAB PO (07:49)
[2017-12-05] MEDS: MULTIVITAMINS/MINERALS THERAP 1 TAB PO (07:49)
[2017-12-05] MEDS: THIAMINE 100 MG TAB PO (07:49)
[2017-12-05] MEDS: PANTOPRAZOLE 40MG TAB (PROTONIX) PO (07:49)
[2017-12-05] MEDS: SPIRONOLACTONE 25 MG TAB PO (07:49)
[2017-12-05] MEDS: OXAZEPAM 10 MG CAP PO (07:49)
[2017-12-05] MEDS: SENOKOT S TAB PO (07:50)
[2017-12-05] MEDS: EUCERIN 120GM CREAM TOP (07:51)
[2017-12-05] MEDS: MAG SULF 1GM/100ML (MAG RUN) 1 GM in APPROPRIATE DILUENT 1 EA IV ×2 (08:24→09:29)
== END 2017-12-05 13:15 | disposition home health service (06) | DRG 280 ==
LOC: M PCU 12-03 18:43 → M MS4PR 12-04 22:41 → M ED 10:19 → M ED INP 17:19 → M PCU 19:41
PROC: 30233K1 Transfusion of Nonautologous Frozen Plasma into Peripheral Vein, Percutaneous Approach (ICD-10-PCS; 2017-11-26)
PROC: 30233J1 Transfusion of Nonautologous Serum Albumin into Peripheral Vein, Percutaneous Approach (ICD-10-PCS; 2017-11-26)
PROC: 0W9G3ZZ Drainage of Peritoneal Cavity, Percutaneous Approach (ICD-10-PCS; principal; 2017-11-27)
PROC: 30233N1 Transfusion of Nonautologous Red Blood Cells into Peripheral Vein, Percutaneous Approach (ICD-10-PCS; 2017-11-28)
DX: K70.31 Alcoholic cirrhosis of liver with ascites (principal); D68.4 Acquired coagulation factor deficiency; E72.20 Disorder of urea cycle metabolism, unspecified; K72.90 Hepatic failure, unspecified without coma; J44.9 Chronic obstructive pulmonary disease, unspecified; D63.8 Anemia in other chronic diseases classified elsewhere; E87.1 Hypo-osmolality and hyponatremia; F17.210 Nicotine dependence, cigarettes, uncomplicated; F10.239 Alcohol dependence with withdrawal, unspecified; R19.7 Diarrhea, unspecified; B19.20 Unspecified viral hepatitis C without hepatic coma; I87.2 Venous insufficiency (chronic) (peripheral); Z79.899 Other long term (current) drug therapy

== ENCOUNTER → 2017-12-26 | Outpatient (REF) | payer OTHER ==
[2017-12-26 12:18] LABS: BASO # 0.2 10^3/uL (0.0-0.2); BASO % 1.9 % (0.0-1.0); EOS # 0.3 10^3/uL (0.0-0.50); HEMATOCRIT 28.9 % (42.0-52.0); HEMOGLOBIN 10.2 g/dl (13.5-17.5); IMMATURE GRANULOCYTE % 0.1 % (0-3.0); LYMPH # 2.5 10^3/uL (1.5-4.5); LYMPH % 29.7 % (24.0-44.0); MEAN CORPUSCULAR HEMOGLOBIN 32.8 pg (27.0-33.0); MEAN CORPUSCULAR HGB CONC 35.3 g/dl (32.0-36.5); MEAN CORPUSCULAR VOLUME 92.9 fl (80.0-96.0); MONO # 1.1 10^3/uL (0.0-0.8); MONO % 13.5 % (0.0-5.0); NEUTROPHILS # 4.2 10^3/uL (1.8-7.7); NEUTROPHILS % 50.8 % (36.0-66.0); PLATELET COUNT, AUTOMATED 192 10^3/uL (150-450); RED BLOOD COUNT 3.11 10^6/uL (4.30-6.10); RED CELL DISTRIBUTION WIDTH 17.2 % (11.5-14.5); RETIC HEMOGLOBIN EQUIVALENT 37.7 pg (24-36); RETICULOCYTE # 39.8 10^9/L (17-77); RETICULOCYTE % 1.3 % (0.5-1.5); WHITE BLOOD COUNT 8.3 10^3/uL (4.0-10.0)
[2017-12-26 12:28] LABS: PROTHROMBIN TIME 21.2 SECONDS (12.1-14.4)
[2017-12-26 12:30] LABS: PARTIAL THROMBOPLASTIN TIME 53.5 SECONDS (25.4-37.6)
[2017-12-26 13:02] LABS: ALPHA FETOPROTEIN TUMOR QUANT 3.4 NG/ML (<8.1)
[2017-12-26 13:06] LABS: FERRITIN 106 NG/ML (26-388); IRON (FE) 62 UG/DL (65-175); PERCENT SATURATION 32.6 % (19.7-50.0); TOTAL IRON BINDING CAPACITY 190 UG/DL (250-450)
[2017-12-27 09:42] LABS: HIV 1&2 SCREEN CENTAUR NEGATIVE (NEGATIVE)
[2017-12-28 00:06] LABS: ANA (HEP2) Negative (.); ANTI-MITOCHONDRIAL ANTIBODY 3.5 Units (0.0-20.0); TRANSFERRIN 155 mg/dL (200-370)
== END ==
LOC: M SFHCPLAZ 09:51
DX: Z11.4 Encounter for screening for human immunodeficiency virus [HIV] (principal); R10.84 Generalized abdominal pain; R18.8 Other ascites; R74.0 Nonspecific elevation of levels of transaminase and lactic acid dehydrogenase [LDH]
CPT/HCPCS: 83550

== ENCOUNTER → 2017-12-28 | Outpatient (CLI) | payer OTHER | LOC: M RADPRO 12:36 | DX: R18.8 Other ascites (principal); Z53.8 Procedure and treatment not carried out for other reasons | CPT/HCPCS: 76705 ==

== ENCOUNTER → 2018-01-02 | Outpatient (CLI) | payer OTHER | LOC: M RAD 08:36 | DX: R18.8 Other ascites (principal); K76.6 Portal hypertension; K74.60 Unspecified cirrhosis of liver | CPT/HCPCS: 76705 ==

== ENCOUNTER → 2018-01-11 | Outpatient (CLI) | payer OTHER ==
[~2018-01-11] MED LIST: GASTROGRAFIN SOLUTION 30ML (Q9963) As Ordered; ISOVUE-370 76% 100ML VIAL (Q9967) As Ordered
[2018-01-11 13:10] LABS: BASO # 0.1 10^3/uL (0.0-0.2); BASO % 1.8 % (0.0-1.0); EOS # 0.3 10^3/uL (0.0-0.50); EOS % 3.7 % (0.0-3.0); HEMATOCRIT 27.1 % (42.0-52.0); HEMOGLOBIN 9.7 g/dl (13.5-17.5); IMMATURE GRANULOCYTE % 0.4 % (0-3.0); LYMPH # 2.1 10^3/uL (1.5-4.5); LYMPH % 27.1 % (24.0-44.0); MEAN CORPUSCULAR HEMOGLOBIN 32.9 pg (27.0-33.0); MEAN CORPUSCULAR HGB CONC 35.8 g/dl (32.0-36.5); MEAN CORPUSCULAR VOLUME 91.9 fl (80.0-96.0); MONO # 0.9 10^3/uL (0.0-0.8); MONO % 11.8 % (0.0-5.0); NEUTROPHILS # 4.3 10^3/uL (1.8-7.7); NEUTROPHILS % 55.2 % (36.0-66.0); PLATELET COUNT, AUTOMATED 175 10^3/uL (150-450); RED BLOOD COUNT 2.95 10^6/uL (4.30-6.10); WHITE BLOOD COUNT 7.8 10^3/uL (4.0-10.0)
[2018-01-11 14:05] LABS: ALBUMIN 2.5 GM/DL (3.2-5.2); ALBUMIN/GLOBULIN RATIO 0.38 (1.00-1.93); ALKALINE PHOSPHATASE 76 U/L (45-117); ALT/SGPT 24 U/L (12-78); ANION GAP 12 MEQ/L (8-16); AST/SGOT 47 U/L (7-37); BILIRUBIN,TOTAL 3.3 MG/DL (0.2-1.0); BLOOD UREA NITROGEN 6 MG/DL (7-18); CALCIUM LEVEL 9.4 MG/DL (8.5-10.1); CARBON DIOXIDE LEVEL 21 MEQ/L (21-32); CHLORIDE LEVEL 103 MEQ/L (98-107); CREATININE FOR GFR 0.97 MG/DL (0.70-1.30); GLOMERULAR FILTRATION RATE > 60.0 (>60); GLUCOSE, FASTING 117 MG/DL (70-100); POTASSIUM SERUM 3.3 MEQ/L (3.5-5.1); SODIUM LEVEL 136 MEQ/L (136-145); TOTAL PROTEIN 9.1 GM/DL (6.4-8.2)
== END ==
LOC: M RAD 12:53
DX: R10.32 Left lower quadrant pain (principal)
CPT/HCPCS: Q9963

== ENCOUNTER → 2018-01-11 | Outpatient (CLI) | payer OTHER ==
[2018-01-12 12:21] LABS: HEPATITIS B SURFACE ANTIBODY POSITIVE (POSITIVE)
[2018-01-19 00:06] LABS: ALPHA 2-MACROGLOBULIN 332 mg/dL (110-276); ALT 21 IU/L (0-55); APOLIPOPROTEIN A-1 104 mg/dL (101-178); FIBROSIS SCORE 0.97 (0.00-0.21); GGT 49 IU/L (0-65); HAPTOGLOBIN <10 mg/dL (34-200); HEPATITIS A IgG TOTAL Positive (Negative); HEPATITIS C QUANTITATION 860 IU/mL (.); NECROINFLAM SCORE 0.21 (0.00-0.17); NECROINFLAMM GRADE A0-A1 (.); TOTAL BILIRUBIN 3.3 mg/dL (0.0-1.2)
== END ==
LOC: M LAB 12:28
DX: B19.20 Unspecified viral hepatitis C without hepatic coma (principal)
CPT/HCPCS: 84460

== ENCOUNTER → 2018-02-07 | Outpatient (CLI) | payer OTHER | LOC: M CARPUL 10:36 | DX: R06.02 Shortness of breath (principal) | CPT/HCPCS: 94060 ==

== ENCOUNTER 2018-03-01 08:42 | Day surgery (SDC) | payer OTHER ==
[2018-03-01] MEDS: NS 1,000 ML IV (09:00)
[2018-03-01] MEDS ORDERED: PROPOFOL 500 MG/50 ML VIAL As Ordered (10:20)
[2018-03-01] MEDS ORDERED: LIDOCAINE 2% INJ 100 MG/5 ML SDV (FOR ANES.) As Ordered (10:20)
[2018-03-01] MEDS ORDERED: PROPOFOL 200 MG/20 ML VIAL As Ordered (10:50)
== END 2018-03-01 11:36 | disposition home or self-care (01) ==
LOC: M OPP 11:36
DX: D50.0 Iron deficiency anemia secondary to blood loss (chronic) (principal); K57.30 Diverticulosis of large intestine without perforation or abscess without bleeding; Q43.8 Other specified congenital malformations of intestine; K74.60 Unspecified cirrhosis of liver; I85.10 Secondary esophageal varices without bleeding; K76.6 Portal hypertension; K31.89 Other diseases of stomach and duodenum; K52.9 Noninfective gastroenteritis and colitis, unspecified; K21.9 Gastro-esophageal reflux disease without esophagitis; R12 Heartburn; R23.3 Spontaneous ecchymoses; Z87.448 Personal history of other diseases of urinary system; B19.20 Unspecified viral hepatitis C without hepatic coma; M19.90 Unspecified osteoarthritis, unspecified site; Z87.828 Personal history of other (healed) physical injury and trauma; F41.9 Anxiety disorder, unspecified; R51 Headache; R56.9 Unspecified convulsions; J44.9 Chronic obstructive pulmonary disease, unspecified; N40.1 Benign prostatic hyperplasia with lower urinary tract symptoms; F17.210 Nicotine dependence, cigarettes, uncomplicated; F10.21 Alcohol dependence, in remission; F12.21 Cannabis dependence, in remission; Z79.899 Other long term (current) drug therapy; Z80.41 Family history of malignant neoplasm of ovary
CPT/HCPCS: 45378

== ENCOUNTER → 2018-03-30 | Outpatient (CLI) | payer OTHER ==
[2018-03-30 08:48] LABS: HEMOGLOBIN 10.6 g/dl (13.5-17.5); MEAN CORPUSCULAR HEMOGLOBIN 33.8 pg (27.0-33.0); MEAN CORPUSCULAR HGB CONC 34.2 g/dl (32.0-36.5); MEAN CORPUSCULAR VOLUME 98.7 fl (80.0-96.0); PLATELET COUNT, AUTOMATED 144 10^3/uL (150-450); RED BLOOD COUNT 3.14 10^6/uL (4.30-6.10); RED CELL DISTRIBUTION WIDTH 16.9 % (11.5-14.5); WHITE BLOOD COUNT 7.3 10^3/uL (4.0-10.0)
[2018-03-30 08:59] LABS: INR 1.62; PROTHROMBIN TIME 19.5 SECONDS (12.1-14.4)
[2018-03-30 09:45] LABS: ALBUMIN 2.7 GM/DL (3.2-5.2); ALBUMIN/GLOBULIN RATIO 0.54 (1.00-1.93); ALKALINE PHOSPHATASE 82 U/L (45-117); ALT/SGPT 25 U/L (12-78); ANION GAP 9 MEQ/L (8-16); AST/SGOT 40 U/L (7-37); BILIRUBIN,TOTAL 2.5 MG/DL (0.2-1.0); BLOOD UREA NITROGEN 9 MG/DL (7-18); CALCIUM LEVEL 8.7 MG/DL (8.5-10.1); CARBON DIOXIDE LEVEL 23 MEQ/L (21-32); CHLORIDE LEVEL 105 MEQ/L (98-107); CREATININE FOR GFR 0.75 MG/DL (0.70-1.30); GLOMERULAR FILTRATION RATE > 60.0 (>60); GLUCOSE, FASTING 83 MG/DL (70-100); POTASSIUM SERUM 4.1 MEQ/L (3.5-5.1); SODIUM LEVEL 137 MEQ/L (136-145); TOTAL PROTEIN 7.7 GM/DL (6.4-8.2)
== END ==
LOC: M LAB 08:08
DX: K74.60 Unspecified cirrhosis of liver (principal)
CPT/HCPCS: 80053

== ENCOUNTER 2018-04-17 07:24 | Day surgery (SDC) | payer OTHER ==
[2018-04-17] MEDS: TROPICAMIDE 1% OPHTH SOLN 2ML OD (07:00)
[2018-04-17] MEDS: OFLOXACIN 0.3 % (OCUFLOX) OPTH SOL 5ML OD (07:00)
[2018-04-17] MEDS: LIDOCAINE 3.5 % 1ML OPHTH TOPICAL GEL OU (07:00)
[2018-04-17] MEDS: PHENYLEPHRINE 2.5% OPHTH SOL 2ML OD (07:00)
[2018-04-17] MEDS: CYCLOPENTOLATE 2% OPHTH SOLN 2ML BTL OD (07:00)
[~2018-04-17 07:24] MED LIST changes: +ACETAMINOPHEN 325 MG TAB PO; -GASTROGRAFIN SOLUTION 30ML (Q9963) As Ordered; -ISOVUE-370 76% 100ML VIAL (Q9967) As Ordered; +MIDAZOLAM INJ 2 MG/2 ML VIAL (J2250) As Ordered; +PHENYLEPHRINE HCL 10 % OPHTH. SOL 5ML OD; +fentaNYL 100 MCG/2 ML INJECTION (J3010) As Ordered
[2018-04-17] MEDS: POVIDONE-IODINE 5% OPHTH PREP SOL 30ML As Ordered (08:52)
[2018-04-17] MEDS: TRYPAN BLUE 0.06 % 2.25 ML OPHTH SYR (VISIONBLUE) As Ordered (08:54)
[2018-04-17] MEDS: HEALON DUET PRO(HEALON 10MG/ML 0.55ML & HEALON ENDOCOAT 30MG/ML 0.85ML) As Ordered (08:54)
[2018-04-17] MEDS: TRIAMCINOLONE PRES FR 40 MG/ML 1ML(TRIESENCE)(OR EYE ONLY)(J3300 PER 1MG) As Ordered (08:54)
[2018-04-17] MEDS: MOXIFLOXACIN IN BSS 0.25MG/0.25ML INTRACAMERAL INJ (OR EYE ONLY)(J2280) As Ordered (08:54)
[2018-04-17] MEDS: BSS with VANC/TOB/EPI for EYE CASES IR (08:54)
[2018-04-17] MEDS: LIDOCAINE 1% SDV 5 ML VIAL As Ordered (08:54)
[2018-04-17] MEDS: LIDOCAINE 2% W/EPIN INJ 20ML **PRES FREE XX (08:55)
[2018-04-17] MEDS: ACETYLCHOLINE OPHTH SOLN 1% 2ML (MIOCHOL-E) As Ordered (09:02)
[2018-04-17] MEDS ORDERED: AcetaZOLAMIDE 500 MG ER CAP As Ordered (09:27)
[2018-04-17] MEDS: AcetaZOLAMIDE 500 MG ER CAP PO (09:29)
[2018-04-17] MEDS ORDERED: TRIMETHOBENZAMIDE 300 MG CAP PO (09:30)
== END 2018-04-17 09:53 | disposition home or self-care (01) ==
LOC: M SDC 07:24
DX: H25.89 Other age-related cataract (principal); F17.210 Nicotine dependence, cigarettes, uncomplicated; Z79.899 Other long term (current) drug therapy; B18.2 Chronic viral hepatitis C; K57.90 Diverticulosis of intestine, part unspecified, without perforation or abscess without bleeding
CPT/HCPCS: 66984

== ENCOUNTER → 2018-11-14 | Outpatient (CLI) | payer OTHER ==
[~2018-11-14] MED LIST changes: +ACET65TA OR; -ACETAMINOPHEN 325 MG TAB PO; +ALDA25TA2 PO; +AUGM875T28 PO; +CELE1CAP4 OR; +COLA100C2; +COMBVENT INH; +FLAG500T; +FLOM0.4C39 OR; +FLOM0.4C39 PO; +FOLI1TAB OR; +FOLI1TAB11 PO; +FOLI1TAB86 PO; +FURO20TA2 PO; +GABA-1171 PO; +IBUP200T45 PO; +LACT10SO29 PO; +LACT10SO3 PO; +LEVA500T; +LEVA750T7 PO; +MAGN250T11 PO; +MAGN250T9 PO; -MIDAZOLAM INJ 2 MG/2 ML VIAL (J2250) As Ordered; +MILK175C2 PO; +MULTCAP PO; +MULTLIQ7 OR; +MULTTAB61 PO; +NICO14DI20 TD; +NICO21DI26 EXT; +NICO21DI4; +NICO21DI4 TD; +NORCOTAB PO; +OMEP20TA7 OR; +PATIENT COMMENTS; +PERC5TAB8 OR; -PHENYLEPHRINE HCL 10 % OPHTH. SOL 5ML OD; +PROSCAR PO; +SENN8.6T5 OR; +SPIR-10 PO; +THIA100T OR; +THIA100T7 PO; +TRAM50TA2; +Thiamine Hcl PO; +VENTAER INH; +VICO5TAB; +VICO5TAB OR; +VITA100T2 PO; +VITMTA PO; +XIFA550T PO; -fentaNYL 100 MCG/2 ML INJECTION (J3010) As Ordered; +no home meds
--- NOTE | 2018-11-14 11:52 | REP ---
Right lower extremity Duplex Doppler venous ultrasound: Real time compression and duplex Doppler interrogation of the right lower extremity deep venous system is performed. The right common femoral, superficial femoral and popliteal veins are fully compressible with transducer pressure and demonstrate normal spontaneous and phasic flow, without evidence of deep venous thrombosis. Impression: No evidence of deep venous thrombosis of the right lower extremity femoral popliteal venous system. Electronically Signed by Terry Monzon MD 11/14/2018 11:44 A
== END ==
LOC: M RAD 11:15
PROVIDERS: ATTEND Student in an Organized Health Care Education/Training Program
DX: R60.0 Localized edema (principal)

== ENCOUNTER 2018-11-23 17:17 | Inpatient (IN) | payer OTHER ==
[2018-11-23] VITALS (8 sets, daily range): BP systolic 70–116; BP diastolic 44–60
[~2018-11-23] VITALS: Ht 185.4 cm; Wt 75.8 kg
[~2018-11-23 17:17] MED LIST changes: -MULTTAB61 PO; -PATIENT COMMENTS; -SPIR-10 PO
[2018-11-23] MEDS ORDERED: ONDANSETRON 4MG/2ML VIAL (J2405) IV ONE (17:30)
[2018-11-23] MEDS ORDERED: NS 1,000 ML IV ONE ×2 (17:30→23:15)
[2018-11-23] MEDS ORDERED: ISOVUE-370 76% 100ML VIAL (Q9967) As Ordered ONE (18:53)
[2018-11-23 19:11] LABS: ACETAMINOPHEN LEVEL < 2.0 UG/ML (10.0-30.0); ALBUMIN 1.7 GM/DL (3.2-5.2); ALT/SGPT 33 U/L (12-78); AMYLASE 60 U/L (25-115); BILIRUBIN,DIRECT 2.8 MG/DL (0.0-0.2); BILIRUBIN,TOTAL 5.8 MG/DL (0.2-1.0); CK-MB VALUE MASS 3.4 NG/ML (<3.6); CPK CREATINE PHOSPHOKINASE 553 U/L (39-308); ETHYL ALCOHOL (ETHANOL) 0.037 % (0.000-0.010); LIPASE 168 U/L (73-393); MB/CK RELATIVE INDEX 0.61 (< OR =4); SALICYLATE LEVEL < 1.7 MG/DL (5.0-30.0); TOTAL PROTEIN 6.1 GM/DL (6.4-8.2); TROPONIN I 0.27 NG/ML (< 0.10)
--- NOTE | 2018-11-23 19:23 | REP ---
LEFT WRIST, THREE VIEWS: There is no evidence of an acute fracture, dislocation or intrinsic bone disease. IMPRESSION: No fracture or dislocation. Electronically Signed by Terry Monzon MD 11/25/2018 09:10 P
--- NOTE | 2018-11-23 19:23 | REP ---
LEFT ELBOW, FOUR VIEWS: There is no evidence of an acute fracture, dislocation or intrinsic bone disease. IMPRESSION: No fracture or dislocation. Electronically Signed by Terry Monzon MD 11/25/2018 09:10 P
[2018-11-23] MEDS ORDERED: cefTRIAXone SOD 2 GM in D5W MINI-BAG PLUS 50 ML IV ONE (19:30)
[2018-11-23] MEDS ORDERED: PANTOPRAZOLE 40MG INJ (PROTONIX) (C9113) IV ONE (19:30)
[2018-11-23 19:33] LABS: BASO % 0.2 % (0.0-1.0); EOS # 0.2 10^3/uL (0.0-0.50); EOS % 1.5 % (0.0-3.0); LYMPH # 1.8 10^3/uL (1.5-4.5); LYMPH % 14.5 % (24.0-44.0); MEAN CORPUSCULAR HEMOGLOBIN 36.7 pg (27.0-33.0); MEAN CORPUSCULAR HGB CONC 32.7 g/dl (32.0-36.5); MEAN CORPUSCULAR VOLUME 112.2 fl (80.0-96.0); MONO % 19.5 % (0.0-5.0); NEUTROPHILS # 7.3 10^3/uL (1.8-7.7); NEUTROPHILS % 59.4 % (36.0-66.0); RED BLOOD COUNT 0.98 10^6/uL (4.30-6.10); WHITE BLOOD COUNT 12.3 10^3/uL (4.0-10.0)
[2018-11-23 19:36] LABS: HEMOGLOBIN 3.6 g/dl (13.5-17.5); MONO # 2.4 10^3/uL (0.0-0.8); PLATELET COUNT, AUTOMATED 89 10^3/uL (150-450)
[2018-11-23] MEDS ORDERED: FURO20TA2 PO (20:31)
[2018-11-23] MEDS ORDERED: FOLI1TAB11 PO (20:31)
--- NOTE | 2018-11-23 20:31 | REPVR ---
EXAM: CT Chest With Contrast EXAM DATE/TIME: 11/23/2018 7:24 PM CLINICAL HISTORY: 48 years old, male; Injury or trauma; Fall; Initial encounter; Blunt trauma (contusions or hematomas) TECHNIQUE: Imaging protocol: Axial computed tomography images of the chest with intravenous contrast. Coronal and sagittal reformatted images were created and reviewed. Radiation optimization: All CT scans at this facility use at least one of these dose optimization techniques: automated exposure control; mA and/or kV adjustment per patient size (includes targeted exams where dose is matched to clinical indication); or iterative reconstruction. Contrast material: ISOVUE 370; Contrast volume: 100 ml; Contrast route: IV; COMPARISON: CT Chest with contrast 09/09/2015 7:10 PM FINDINGS: Lungs: Mild lung zone emphysematous changes with numerous subpleural blebs demonstrated bilaterally. Peripheral subpleural lung groundglass opacities demonstrated in the upper anterior segment right upper lobe measuring 1.7 x 1.9 cm, anterior segment right upper lobe measuring 1.2 x 2.9 cm, and left upper lobe measuring 1.2 x 0.8 cm. Findings may represent atelectasis although a more aggressive lesion is not excluded. Calcified granuloma left lung base. Pleural space: Unremarkable. No pneumothorax. No pleural effusion. Heart: Unremarkable. No cardiomegaly. No pericardial effusion. Aorta: Unremarkable. No aortic aneurysm. Lymph nodes: Unremarkable. No enlarged lymph nodes. Bones/joints: The spine demonstrates mild degenerative changes. Fracture mid sternum. Age-indeterminate compression deformity at T11. Dextroscoliosis. Soft tissues: Unremarkable. IMPRESSION: 1. Mild lung zone emphysematous changes with numerous subpleural blebs demonstrated bilaterally. 2. Peripheral subpleural lung groundglass opacities demonstrated in the upper anterior segment right upper lobe measuring 1.7 x 1.9 cm, anterior segment right upper lobe measuring 1.2 x 2.9 cm, and left upper lobe measuring 1.2 x 0.8 cm. Findings may represent atelectasis although a more aggressive lesion is not excluded. Recommend CT at 3-6 months. Subsequent management based on the most suspicious nodule(s). (Todd et al., Fleischner Society, 2017) 3. Mid sternal fracture. Electronically signed by: Cliff Payan On 11/23/2018 20:31:15 PM
[2018-11-23] MEDS ORDERED: SPIR-10 PO (20:32)
[2018-11-23] MEDS ORDERED: XIFA550T PO (20:32)
[2018-11-23] MEDS ORDERED: MULTTAB61 PO (20:33)
[2018-11-23] MEDS ORDERED: PATIENT COMMENTS (20:35)
--- NOTE | 2018-11-23 20:40 | REPVR ---
EXAM: CT Abdomen and Pelvis With Contrast EXAM DATE/TIME: 11/23/2018 7:24 PM CLINICAL HISTORY: 48 years old, male; Abdominal pain; Generalized TECHNIQUE: Imaging protocol: Axial computed tomography images of the abdomen and pelvis with intravenous contrast. Coronal and sagittal reformatted images were created and reviewed. Radiation optimization: All CT scans at this facility use at least one of these dose optimization techniques: automated exposure control; mA and/or kV adjustment per patient size (includes targeted exams where dose is matched to clinical indication); or iterative reconstruction. Contrast material: ISOVUE 370; Contrast volume: 100 ml; Contrast route: IV; COMPARISON: CT ABD PELVIS WITH CONTRAST 01/11/2018 2:50 PM FINDINGS: Mediastinum: Dilated fluid filled distal esophagus. Liver: Examination of the liver demonstrates a lobular surface contour, and enlargement of the left lobe, overall reduction in volume findings consistent with late stage cirrhosis. Gallbladder and bile ducts: The gallbladder is incompletely distended. This is most likely related to incomplete fasting. Clinical correlation to exclude gallbladder pathology suggested. Pancreas: Fluid surrounds the pancreatic head and neck may be secondary to the presence of pancreatitis. No pseudocyst or phlegmon demonstrated. No significant dilatation of the pancreatic duct or pancreatic calcifications. Correlation with lab data suggested. Spleen: Normal. No splenomegaly. Adrenals: Normal. No mass. Kidneys and ureters: Normal. No hydronephrosis. Stomach and bowel: There is gastric distention with retained secretions. Clinical correlation to exclude gastroparesis or gastric outlet obstruction suggested. Mild diverticulosis is present in the distal colon. No diverticulitis. Appendix: No evidence of appendicitis. Intraperitoneal space: There is a small amount of free intraperitoneal fluid present. Vasculature: The aorta demonstrates moderate atherosclerotic calcification. Lymph nodes: Normal. No enlarged lymph nodes. Bladder: Unremarkable as visualized. Reproductive: Unremarkable as visualized. Bones/joints: Old pelvic fracture deformity is again demonstrated. Mild to moderate central spinal stenosis L3-4 and moderate to severe central spinal stenosis at L4-5. Age-indeterminate compression deformity of L1. Acute fracture of the superior endplate on the right to be excluded clinically based on appearance. Soft tissues: Large paraumbilical collaterals. Splenorenal collaterals. Reduced caliber of the splenic vein. Gastroesophageal varices. Other findings: Osteoporosis. IMPRESSION: 1. There is gastric distention with retained secretions. Clinical correlation to exclude gastroparesis or gastric outlet obstruction suggested. 2. There is a small amount of free intraperitoneal fluid present. 3. Examination of the liver demonstrates findings consistent with late stage cirrhosis. 4. Large paraumbilical collaterals. Splenorenal collaterals. Gastroesophageal varices. 5. The gallbladder is incompletely distended. This is most likely related to incomplete fasting. Clinical correlation to exclude gallbladder pathology suggested. 6. Fluid surrounds the pancreatic head and neck may be secondary to the presence of pancreatitis. No pseudocyst or phlegmon demonstrated. No significant dilatation of the pancreatic duct or pancreatic calcifications. Correlation with lab data suggested. 7. Mild diverticulosis is present in the distal colon. No diverticulitis. 8. Age-indeterminate fracture of L1 possibly acute or subacute. Clinical correlation needed. Electronically signed by: Cliff Payan On 11/23/2018 20:39:50 PM
[2018-11-23] MEDS ORDERED: PANTOPRAZOLE SODIUM 40 MG in D5W 50 ML IV SCH (20:56)
[2018-11-23] MEDS ORDERED: THIAMINE 100 MG TAB PO SCH (21:00)
--- NOTE | 2018-11-23 21:08 | CR.PDOC ---
General Date of Consultation: Nov 23, 2018 Referring Provider: ELI TESFAYE MD Attending Physician: JAMES VICKERS MD Consultation Primary physician/ hospitalist: Dr. Tesfaye Reason for consult: GI bleeding, liver cirrhosis. HPI: 48-year-old male patient with history of alcoholic liver cirrhosis (active alcohol use, CTP C, MELD - Na- 30, Decompansated with Hepatic encephalopathy, non complaint with medical care), chronic hepatitis C, COPD, was brought to the emergency room by his roommates, after he started having vomiting of blood and bloody diarrhea. GI was consulted for the same. Patient upon examination in ER, was alert and awake but not oriented to time and place, unable to provide history and agitated. History obtained from patient's sister (Mary Frausto), who reports patient actively drinking alcohol. In ER patient was noted to have hemoglobin of 3.6, tachycardia and hypotension, but no further episodes of vomiting. Review of Systems: Limited due to patient's mental status. Home medications: reviewed, unclear about compliance. Antithrombotic agents - none. Medical h/o: As above. Surgical h/o: None on abdomen. Social h/o: Alcohol- Active heavy alcohol use, tobacco-active, IVDA/ drugs- denies. Family h/o of GI cancers -noncontributory Prior Endoscopies: --- EGD - February [address] Barillas, done for iron deficiency anemia-- grade 1 small esophageal dialysis, portal hypertensive gastropathy, normal duodenum. --- Colonoscopy -February [address] Barillas - for NICOL -- diverticulosis of sigmoid colon and tortuous colon. Prior GI evaluation: Follows with Dr. Barillas last seen in GI clinic in 2018. Exam: Vitals: reviewed General: Alert and oriented x 1, HEENT: Severe pallor, icterus. dry mucous membranes.. Chest: symmetric with bilateral clear air entry, CVS: S1, S2 heard, normal, . Abdomen: Mildly distended, no surgical scars, soft, non-tender, no palpable masses, normal bowel sounds heard. Rectal exam: Patient refused. Extremities: no pedal edema, pulses palpable. A&P TECHNICIAN: no focal motor or sensory deficits. Moves all extremities Skin: no rash. Labs: reviewed. Impression: - Acute onset hematemesis with drop in Hemoglobin and hematocrit in patient with know decompensated liver cirrhosis with active alcohol use -- DDx-- Variceal bleeding vs MWT vs Gastritis/ esophagitis. vs PUD. - Decompensated liver cirrhosis ( CTP C, MELD-Na 30 - calculated based on latest labs), Likely etiology Alcohol + Chronic hepatitis C, with hepatic encephalopathy, Grade 1 Varices in Last EGD in 2018, clinical mild ascites. Recommendations: - Patient's sister is educated about the test results, possible differential diagnoses and All questions answered. - Monitor hemoglobin and hematocrit and transfuse as needed to hemoglobin level 7-8 g/dL - IV pantoprazole drip - IV antibiotics - prefer ceftriaxone for 7 days. - IV octreotide bolus followed by continuous drip - Correct Coagulopathy - consider FFP if active bleeding. - Due to decompensated liver cirrhosis and hepatic encephalopathy, patient's sister is explained of the poor prognosis. - Due to unstable status, discussed with anesthesiology, patient will not be able to tolerate anesthesia for EGD at this time. - After adequate resuscitation and correction of coagulopathy will consider EGD. - The procedure, indications, risks (bleeding, perforation, infection, hypotension, respiratory depression, allergy, need for endotracheal intubation, surgery, colostomy, cardiac arrest, even ), benefits, limitations (e.g., missing a lesion), and all other alternatives (including no intervention) were explained to the patient's sister who understood and agreed for the procedure. - If active vomiting, consider intubation to protect airways. - Consider IR evaluation if patient is unstable and continues to bleed. - Resume Xifaxan and rectal lactulose for hepatic encephalopathy. - Monitor for alcohol withdrawal and management as per primary team/. Plan of care discussed with patient's sister and primary team. Patient's sister verbalized understanding and agreed with the plan. Laboratory Data CBC/BMP Laboratory Tests 11/23/18 19:10 Red Blood Count 0.98 L, Mean Corpuscular Volume 112.2 H, Mean Corpuscular Hemoglobin 36.7 H, Mean Corpuscular Hemoglobin Concent 32.7, Red Cell Distribution Width 21.6 H, Neutrophils (%) (Auto) 59.4, Lymphocytes (%) (Auto) 14.5 L, Monocytes (%) (Auto) 19.5 H, Eosinophils (%) (Auto) 1.5, Basophils (%) (Auto) 0.2, Neutrophils # (Auto) 7.3, Lymphocytes # (Auto) 1.8, Monocytes # (Auto) 2.4 H, Eosinophils # (Auto) 0.2, Basophils # (Auto) 0.0 Allergies Coded Allergies: No Known Allergies (Verified , 07/23/18) Home Medications Scheduled Folic Acid (Folic Acid) 1 Mg Tablet, 1 MG PO DAILY, (Reported) Furosemide (Furosemide) 20 Mg Tablet, 20 MG PO DAILY, (Reported) Magnesium Oxide (Magnesium Oxide) 250 Mg Tab, 250 MG PO DAILY, (Reported) Multivitamin (Multivitamins) 1 Each Tablet, 1 TAB PO DAILY, (Reported) Rifaximin (Xifaxan) 550 Mg Tablet, 550 MG PO BID, (Reported) Spironolactone (Spironolactone) 25 Mg Tablet, 25 MG PO DAILY, (Reported) Thiamine HCl (Thiamine HCl) 100 Mg Tab, 100 MG PO DAILY, (Reported) Miscellaneous Medications [Patient Comments] , (Reported) PATIENT IS A POOR MEDICATION HISTORIAN. RX LISTED ARE FOR ACTIVE PRESCRIPTIONS AT HIS PHARMACY, EXCEPT FOR THE OTC MEDICATIONS JAMES VICKERS MD Nov 23, 2018 21:08
--- NOTE | 2018-11-23 21:16 | REP ---
CHEST, PORTABLE: AP portable view of the chest is performed. There is elevation of the left hemidiaphragm with crowded lung markings inferiorly on the left. There is a right central venous catheter with the tip in the superior vena cava. There is no pneumothorax. Cardiomediastinal silhouette is unremarkable. Electronically Signed by Terry Monzon MD 11/25/2018 09:14 P
--- NOTE | 2018-11-23 21:22 | HPEPDOC ---
General Date of Admission Nov 23, 2018 at 20:56 Date of Service: Nov 23, 2018 Attending Physician: LADI MARES MD Chief Complaint The patient is a 48-year-old male admitted with a reason for visit of Acute Blood Loss Anemia, Hematemesis. Source: Patient, EMS notes reviewed Exam Limitations: Intoxication Timing/Duration: Other (unknown) Severity: Severe Associated Symptoms: Vomiting History of Present Illness 48 years old white male with past medical history of cirrhosis of liver, which is decompensated with hepatic encephalopathy, chronic hepatitis C, COPD patient noncompliant to meds and active use of alcohol brought in by EMS with chief complaints of vomiting blood and bloody diarrhea. Patient is lethargic and intoxicated and requesting something for prevention of his DVTs. History was obtained from a ED physician and EMS records As per EMS records, patient has vomited blood. On arrival he was found to have a defecated and urinated on himself and there was coffee-ground emesis on the floor next to patient. Initially his blood pressure was 70/50 40 patient was also found to have a large bruise on left side of his hip to make left arm swollen, bruised discoloration. He had altered mental status and was brought to ED for further workup and admission Home Medications Scheduled Folic Acid (Folic Acid) 1 Mg Tablet, 1 MG PO DAILY, (Reported) Furosemide (Furosemide) 20 Mg Tablet, 20 MG PO DAILY, (Reported) Magnesium Oxide (Magnesium Oxide) 250 Mg Tab, 250 MG PO DAILY, (Reported) Multivitamin (Multivitamins) 1 Each Tablet, 1 TAB PO DAILY, (Reported) Rifaximin (Xifaxan) 550 Mg Tablet, 550 MG PO BID, (Reported) Spironolactone (Spironolactone) 25 Mg Tablet, 25 MG PO DAILY, (Reported) Thiamine HCl (Thiamine HCl) 100 Mg Tab, 100 MG PO DAILY, (Reported) Miscellaneous Medications [Patient Comments] , (Reported) PATIENT IS A POOR MEDICATION HISTORIAN. RX LISTED ARE FOR ACTIVE PRESCRIPTIONS AT HIS PHARMACY, EXCEPT FOR THE OTC MEDICATIONS Allergies Coded Allergies: No Known Allergies (Verified , 07/23/18) Past Medical History Medical History Alcohol liver cirrhosis, hepatitic encephalopathy, chronic C hepatitis COPD Surgical History Appendectomy, status post stomach surgery for repair of staph infection, bladder repair injury from fall, bowel resection for obstruction Family History Significant Family History: No pertinent family hx Social History * Smoker: current smoker Alcohol: heavy Drugs: other (, unable to explain) A-FIB/CHADSVASC A-FIB History Current/History of A-Fib/PAF?: No Review of Systems Constitutional: Reports: Other (unable to obtained review of systems secondary to patient's mental status and clinical condition and intoxication) Physical Examination General Exam: Positive: Other (, awake but not alert, responsive some questions with yes and no) Eye Exam: Positive: Sclera icteric ENT Exam: Positive: Atraumatic, Other ENT (dry mucous membranes) Neck Exam: Positive: Supple Chest Exam: Positive: Clear to auscultation, Normal air movement Heart Exam: Positive: Rate Normal, Normal S1, Normal S2 Abdomen Exam: Positive: Normal bowel sounds, Soft, Hepatospenomegaly Extremity Exam: Positive: Other (. Left upper extremity swelling, left lower extremity swelling) Skin Exam: Positive: Other skin issue (large ecchymosis left side of body) Neuro Exam: Positive: Other Psych Exam: Positive: Other (, unable to do neuro exam due to psych exam) Vital Signs Vital Signs Date Time Temp Pulse Resp B/P (MAP) Pulse Ox O2 Delivery O2 Flow Rate FiO2 11/23/18 21:00 128 114/55 (74) 100 Room Air 11/23/18 20:32 96.2 16 Laboratory Data Labs 24H Laboratory Tests 2 11/23/18 17:35: Aspartate Amino Transf (AST/SGOT) 90H, Alanine Aminotransferase (ALT/SGPT) 33, Alkaline Phosphatase 62, Total Bilirubin 5.8H, Direct Bilirubin 2.8H, Total Creatine Kinase 553H, Creatine Kinase MB 3.4, Creatine Kinase MB Relative Index 0.61, Troponin I 0.27H, Total Protein 6.1L, Albumin 1.7L, Albumin/Globulin Ratio 0.39L, Amylase Level 60, Lipase 168, Salicylates Level < 1.7L, Acetaminophen Level < 2.0L, Ethyl Alcohol Level 0.037H 11/23/18 18:23: POC Glucose (Misc Panel) 103, POC Sodium (Misc Panel) 115*L, POC Potassium (Misc Panel) 4.7, POC Chloride (Misc Panel) 86L, POC Total CO2 (Misc Panel) 14.0L, POC Blood Urea Nitrogen (Misc Panel 31H, POC Ionized Calcium (Misc Panel) 3.9L, POC Creatinine (Misc Panel) 1.0, POC Hematocrit (Misc Panel) < 15.0L 11/23/18 19:10: Immature Granulocyte % (Auto) 4.9H, White Blood Count 12.3H, Red Blood Count 0.98L, Hemoglobin 3.6*L, Hematocrit 11.0L, Mean Corpuscular Volume 112.2H, Mean Corpuscular Hemoglobin 36.7H, Mean Corpuscular Hemoglobin Concent 32.7, Red Cell Distribution Width 21.6H, Platelet Count 89L, Neutrophils (%) (Auto) 59.4, Lymphocytes (%) (Auto) 14.5L, Monocytes (%) (Auto) 19.5H, Eosinophils (%) (Auto) 1.5, Basophils (%) (Auto) 0.2, Neutrophils # (Auto) 7.3, Lymphocytes # (Auto) 1.8, Monocytes # (Auto) 2.4H, Eosinophils # (Auto) 0.2, Basophils # (Auto) 0.0, Nucleated Red Blood Cells % (auto) 0.3H, Immature Platelet Fraction 2.8 11/23/18 19:16: Bedside Prothrombin Time INR 2.4, Prothrombin Time (MISC) 27.2H CBC/BMP Laboratory Tests 11/23/18 19:10 Red Blood Count 0.98 L, Mean Corpuscular Volume 112.2 H, Mean Corpuscular Hemoglobin 36.7 H, Mean Corpuscular Hemoglobin Concent 32.7, Red Cell Distribution Width 21.6 H, Neutrophils (%) (Auto) 59.4, Lymphocytes (%) (Auto) 14.5 L, Monocytes (%) (Auto) 19.5 H, Eosinophils (%) (Auto) 1.5, Basophils (%) (Auto) 0.2, Neutrophils # (Auto) 7.3, Lymphocytes # (Auto) 1.8, Monocytes # (Auto) 2.4 H, Eosinophils # (Auto) 0.2, Basophils # (Auto) 0.0 Microbiology Microbiology 11/23/18 Blood Culture, Received Pending 11/23/18 Blood Culture, Received Pending Problems (1) Acute blood loss anemia Status: Acute Problem Text: Secondary to variceal bleed or Linda-Rowell tears Continue IV fluid normal saline and 150 mL per hour Patient received 2 units of PRBC. Will follow H&H was transfusion is done Patient also had a central venous line placed in for access Protonix IV drip as per orders Octreotide IV drip as per orders FFP if there is any evidence of bleeding. Patient is asymptomatic at present time Poor prognosis Admitted to ICU CBC every 6 hours Supportive care If he starts vomiting again, we might consider intubation to protect his airway EGD as per GI Continue cefoxitin and and home meds CIWA protocol was started with Ativan for possible alcohol withdrawal (2) Hematemesis Status: Acute Problem Text: As above (3) Ascites due to alcoholic cirrhosis Status: Acute (4) Alcohol abuse Status: Chronic Problem Text: As above Plan / VTE VTE Prophylaxis Ordered?: No LADI MARES MD Nov 23, 2018 21:22
[2018-11-23] MEDS ORDERED: LORazepam 2 MG TAB PO PRN (21:30)
[2018-11-23] MEDS: OCTREOTIDE ACETATE 1,200 MCG in NS 238.8 ML IV SCH (21:30)
[2018-11-23] MEDS: PANTOPRAZOLE SODIUM 40 MG in D5W 50 ML IV SCH (21:32)
[2018-11-23] MEDS: NS 1,000 ML IV SCH ×2 (21:32→22:27)
[2018-11-23] MEDS ORDERED: THIAMINE HCL 200 MG/2 ML VIAL (J3411) IV ONE (22:45)
[2018-11-23] MEDS: LORazepam 2 MG/ML VIAL (J2060) IV PRN (23:05)
[2018-11-24] VITALS (58 sets, daily range): BP systolic 83–141; BP diastolic 51–90
[2018-11-24 00:18] LABS: HEMATOCRIT 15.2 % (42.0-52.0)
[2018-11-24] MEDS: PANTOPRAZOLE SODIUM 40 MG in D5W 50 ML IV SCH ×5 (01:44→21:51)
[2018-11-24 05:27] LABS: HEMATOCRIT 22.1 % (42.0-52.0); HEMOGLOBIN 7.4 g/dl (13.5-17.5); MEAN CORPUSCULAR HEMOGLOBIN 31.6 pg (27.0-33.0); MEAN CORPUSCULAR HGB CONC 33.5 g/dl (32.0-36.5); MEAN CORPUSCULAR VOLUME 94.4 fl (80.0-96.0); PLATELET COUNT, AUTOMATED 62 10^3/uL (150-450); RED BLOOD COUNT 2.34 10^6/uL (4.30-6.10); WHITE BLOOD COUNT 11.1 10^3/uL (4.0-10.0)
[2018-11-24 05:59] LABS: ALBUMIN 1.6 GM/DL (3.2-5.2); ALT/SGPT 153 U/L (12-78); BILIRUBIN,TOTAL 9.2 MG/DL (0.2-1.0); BLOOD UREA NITROGEN 31 MG/DL (7-18); CALCIUM LEVEL 6.4 MG/DL (8.5-10.1); CARBON DIOXIDE LEVEL 17 MEQ/L (21-32); CHLORIDE LEVEL 95 MEQ/L (98-107); GLOMERULAR FILTRATION RATE > 60.0 (>60); GLUCOSE, FASTING 101 MG/DL (70-100); POTASSIUM SERUM 5.5 MEQ/L (3.5-5.1); SODIUM LEVEL 123 MEQ/L (136-145); TOTAL PROTEIN 5.4 GM/DL (6.4-8.2)
[2018-11-24] MEDS: NS 1,000 ML IV SCH ×3 (06:18→20:30)
[2018-11-24] MEDS: LORazepam 2 MG/ML VIAL (J2060) IV PRN (06:29)
[2018-11-24 08:49] LABS: ABG BASE EXCESS -4.6 (-2.0-2.0); ABG HCO3 18.7 MEQ/L (22.0-26.0); ABG O2 SATURATION 94.3 % (95.0-99.0); ABG PARTIAL PRESSURE CO2 27.6 mmHg (35.0-45.0); ABG PARTIAL PRESSURE O2 72.2 mmHg (75.0-100.0); ABG STANDARD HCO3 20.6 MEQ/L (22.0-26.0); ABG TOTAL CO2 19.6 MEQ/L (22.0-29.0); ABG pH (ARTERIAL) 7.449 UNITS (7.350-7.450)
--- NOTE | 2018-11-24 08:57 | IPNPDOC ---
Text Note Date of Service The patient was seen on 11/24/18. NOTE S: patient given ativan at 0630; he is snoring with pursed lips, not responding to verbal stimuli but moves away from pain H&P reviewed O: Vitals as below General: somnelent neck: central line partially pulled out, not sutured in, oozing HRRR LCTA with course rhonchi anteriorly SKIN: bruising to anterior chest wall and left upper arm A/P: 1) acute blood loss anemia due to acute upper GI bleed with hematemsis Consult paper coating machine operator for co management and re-placement of central line GI consulted. EGD this AM to evaluate for probable varies or kenneth kurtz tear Octreotide IV drip Protonix IV drip Transfused 4 unit pRBC and hgb improved from 3.8 to 7.4 Will transfuse additional 2 units, plus 1 FFP serial H/H patient started on cefoxtin on admission 2) Ascites - monitor; 3) Alcoholic cirrhosis 4) Chronic Hepatitis C 5) Hepatitis encephalopathy - check ammonia level, ABG pending 6) COPD without exacerbation - nebs 7) thrombocytopenia due to cirrhosis - monitor 8) EtOH withdraw - CIWA protocol/ativan; IV thiamine, IV multivit/folate DVT prophylaxis: hold due to thrombocytopenia and active bleed CODE: full Prognosis: grave/poor VS,Fishbone, I+O VS, Fishbone, I+O Laboratory Tests 11/23/18 19:10 Red Blood Count 0.98 L, Mean Corpuscular Volume 112.2 H, Mean Corpuscular Hemoglobin 36.7 H, Mean Corpuscular Hemoglobin Concent 32.7, Red Cell Distribution Width 21.6 H, Neutrophils (%) (Auto) 59.4, Lymphocytes (%) (Auto) 14.5 L, Monocytes (%) (Auto) 19.5 H, Eosinophils (%) (Auto) 1.5, Basophils (%) (Auto) 0.2, Neutrophils # (Auto) 7.3, Lymphocytes # (Auto) 1.8, Monocytes # (Auto) 2.4 H, Eosinophils # (Auto) 0.2, Basophils # (Auto) 0.0 11/24/18 00:06 11/24/18 05:14 Red Blood Count 2.34 L, Mean Corpuscular Volume 94.4, Mean Corpuscular Hemoglobin 31.6, Mean Corpuscular Hemoglobin Concent 33.5, Red Cell Distribution Width 17.0 H, Calcium Level 6.4 L, Aspartate Amino Transf (AST/SGOT) 698 H, Alanine Aminotransferase (ALT/SGPT) 153 H, Alkaline Phosphatase 59, Total Bilirubin 9.2 #H, Total Protein 5.4 L, Albumin 1.6 L Vital Signs Date Time Temp Pulse Resp B/P (MAP) Pulse Ox O2 Delivery O2 Flow Rate FiO2 11/24/18 06:00 128 120/69 11/24/18 05:15 98 11/24/18 04:00 98.0 20 11/23/18 21:45 Room Air I&O- Last 24 Hours up to 6 AM 11/24/18 06:00 Intake Total 4140 ml Output Total 0 ml Balance 4140 ml JONELLE CASTILLO DO Nov 24, 2018 08:57
[2018-11-24] MEDS: FOLIC ACID 1 MG TAB PO SCH (09:00)
[2018-11-24] MEDS ORDERED: rifAXIMin 550 MG TAB (XIFAXAN) PO SCH (09:00)
[2018-11-24] MEDS: MULTIVITAMINS/MINERALS THERAP 1 TAB PO SCH (09:00)
[2018-11-24] MEDS ORDERED: FOLIC ACID 1 MG TAB PO SCH (09:00)
[2018-11-24] MEDS ORDERED: ALBUTEROL SULFATE 2.5 MG/0.5 ML INH NEB SOLN NEB PRN (09:00)
[2018-11-24] MEDS: cefTRIAXone SOD 1 GM in D5W MINI-BAG PLUS 50 ML IV SCH (10:48)
[2018-11-24] MEDS ORDERED: FUROSEMIDE 20 MG/2 ML VIAL (J1940) IV ONE (11:00)
[2018-11-24 11:20] LABS: HEMATOCRIT 19.8 % (42.0-52.0)
[2018-11-24 11:23] LABS: HEMOGLOBIN 6.9 g/dl (13.5-17.5)
--- NOTE | 2018-11-24 11:23 | IPN ---
DATE: 11/24/2018 The patient is seen in the intensive care unit, hypovolemic, hypotensive, experiencing hematemesis and critically ill. Admitted last evening through the emergency department. He has a past history of alcoholic liver disease, hepatitis C, obstructive lung disease, tobacco abuse. He developed hematemesis, hematochezia. In the emergency department he was found hypotensive, was hydrated and has been transfused. His temperature is 98, pulse rate 128, respirations 20, blood pressure 120/69, up from 70/47. His monitor shows a sinus rhythm. He is sedate from benzodiazepine administration. HEENT: Oral mucosa is pink. His neck is supple without meningismus. Jugular veins are not distended. Carotid upstroke brisk no bruit. Heart sounds are regular with occasional ectopy. Breath sounds diminished bilaterally. Expiratory phase is prolonged. There is scattered rhonchi. Chest is increased in its AP diameter. Abdomen is soft. There are bowel sounds in the lower quadrant. No obvious ascites appreciated on exam. Extremities show ecchymoses. DIAGNOSTIC STUDIES: Sodium 123, potassium 5.5, chloride 95, CO2 17, BUN 31, creatinine 1.0, glucose 101, white cell count 11, hemoglobin is up to 7.4, hematocrit 22.1, platelet count is down to 62,000, bilirubin is 9.2, AST 698, ALT 153, albumin 1.6. His serum alcohol level was 0.037. INR is 2.4. Arterial blood gases show a pH 7.45, pCO2 27, pO2 72. The primary problem requiring critical attention is hemorrhagic and hypovolemic shock. The patient is responding to volume resuscitation and will continue with volume resuscitation. Place a Ware catheter to monitor intake and output. His central venous line has been displaced and will require immediate replacement. Hematemesis. GI has been consulted and is considering endoscopic evaluation. Liver failure, acute on chronic. Hyponatremia, hypovolemic. Volume resuscitation is ongoing. Continued monitoring will be performed. The patient's condition is critical. Prognosis is poor. 73 minutes was spent in the provision of bedside critical care and coordination.
[2018-11-24 11:35] LABS: INR 3.95; PROTHROMBIN TIME 38.7 SECONDS (11.8-14.0)
[2018-11-24] MEDS: IPRATROPIUM 0.5MG/ALBUTEROL 2.5MG INH SOL UD 3ML (DUONEB)(J7620) NEB SCH ×2 (11:57→20:14)
[2018-11-24] MEDS: LACTULOSE 20 GM/30 ML SYRUP UD NG SCH ×3 (12:00→23:54)
--- NOTE | 2018-11-24 14:21 | REP ---
CHEST, SINGLE VIEW: Single view of the chest is performed and compared to a prior study of 11/23/2018. Right central venous catheter is seen. The tip appears to be in the right jugular vein. There is no pneumothorax. There is no infiltrate in the right lung. The left hemidiaphragm is elevated with mild left base atelectatic change. Cardiomediastinal silhouette is unchanged. Electronically Signed by Terry Monzon MD 11/25/2018 10:03 P
--- NOTE | 2018-11-24 14:23 | REP ---
CHEST, SINGLE VIEW: Single view of the chest is performed. Comparison is made with prior exam the same day. Right central venous catheter is again seen. The tip is now in the superior vena cava. The lung souza are unchanged in appearance. Electronically Signed by Terry Monzon MD 11/25/2018 10:04 P
[2018-11-24 14:50] LABS: HEMOGLOBIN 7.6 g/dl (13.5-17.5); MEAN CORPUSCULAR HEMOGLOBIN 32.2 pg (27.0-33.0); MEAN CORPUSCULAR HGB CONC 34.5 g/dl (32.0-36.5); MEAN CORPUSCULAR VOLUME 93.2 fl (80.0-96.0); RED BLOOD COUNT 2.36 10^6/uL (4.30-6.10); WHITE BLOOD COUNT 9.8 10^3/uL (4.0-10.0)
[2018-11-24 14:51] LABS: PLATELET COUNT, AUTOMATED 59 10^3/uL (150-450)
[2018-11-24 15:00] LABS: INR 2.71; PROTHROMBIN TIME 28.6 SECONDS (11.8-14.0)
--- NOTE | 2018-11-24 17:47 | IPNPDOC ---
Text Note Date of Service The patient was seen on 11/24/18. NOTE ADVANCE CARE PLANNING NOTE TIME: 1615 - 1645 Present: healthcare proxy (sister):Nallely Holm , Brother and brother - in -law Discussion - thirty minute discussion held with family regarding advance care planning note and code status. Discussed current hospitalization, diagnosis and treatment plan. Discussed short term treatment options (IVF, blood transfusions, IV PPI, fluids, etc) and joint terminal attack controller treatment options (liver transplant, intermediate placement, etc) for his underlying endstage alcoholic cirrhosis. Patient is unable to make decisions due to hepatic encephalopathy. His current prognosis (GRAVE) discussed with family and health care proxy. Discussed code status (full vs limited code vs DNR/DNI) and discussed if continues to worsen , futility of care. At this time, health care proxy (Nallely Holm) and family members present are in agreement that he should be DNR/DNI. They understand that this may be a life-defining illness and that recovery may not occur. At this time, patient is being made DNR/DNI. If he progressively worsens and futility of care becomes present, then family is aware that additional discussion may occur to discuss comfort measures only. Palliative care consult has been placed. MOLST form reveiwed with health care proxy and family. MOLST form signed Patient is DNR/DNI VS,Matt, I+O VS, Matt, I+O Laboratory Tests 11/23/18 19:10 Red Blood Count 0.98 L, Mean Corpuscular Volume 112.2 H, Mean Corpuscular Hemoglobin 36.7 H, Mean Corpuscular Hemoglobin Concent 32.7, Red Cell Distribution Width 21.6 H, Neutrophils (%) (Auto) 59.4, Lymphocytes (%) (Auto) 14.5 L, Monocytes (%) (Auto) 19.5 H, Eosinophils (%) (Auto) 1.5, Basophils (%) (Auto) 0.2, Neutrophils # (Auto) 7.3, Lymphocytes # (Auto) 1.8, Monocytes # (Auto) 2.4 H, Eosinophils # (Auto) 0.2, Basophils # (Auto) 0.0 11/24/18 00:06 11/24/18 05:14 Red Blood Count 2.34 L, Mean Corpuscular Volume 94.4, Mean Corpuscular Hemoglobin 31.6, Mean Corpuscular Hemoglobin Concent 33.5, Red Cell Distribution Width 17.0 H, Calcium Level 6.4 L, Aspartate Amino Transf (AST/SGOT) 698 H, Alanine Aminotransferase (ALT/SGPT) 153 H, Alkaline Phosphatase 59, Total Bilirubin 9.2 #H, Total Protein 5.4 L, Albumin 1.6 L 11/24/18 11:06 11/24/18 14:33 Red Blood Count 2.36 L, Mean Corpuscular Volume 93.2, Mean Corpuscular Hemoglobin 32.2, Mean Corpuscular Hemoglobin Concent 34.5, Red Cell Distribution Width 16.8 H Vital Signs Date Time Temp Pulse Resp B/P (MAP) Pulse Ox O2 Delivery O2 Flow Rate FiO2 11/24/18 15:30 99.0 141 18 117/59 (78) 96 11/24/18 11:30 Room Air I&O- Last 24 Hours up to 6 AM 11/24/18 06:00 Intake Total 4140 ml Output Total 0 ml Balance 4140 ml JONELLE CASTILLO DO Nov 24, 2018 16:48
[2018-11-24 18:10] LABS: HEMATOCRIT 24.3 % (42.0-52.0); HEMOGLOBIN 8.4 g/dl (13.5-17.5)
[2018-11-24] MEDS: BUDESONIDE 0.25 MG/2 ML INHALATION SUSPENSION INH SCH (20:14)
[2018-11-24] MEDS: rifAXIMin 550 MG TAB (XIFAXAN) NG SCH (20:28)
[2018-11-24] MEDS: OCTREOTIDE ACETATE 1,200 MCG in NS 238.8 ML IV SCH (20:29)
[2018-11-24] MEDS: ACETAMINOPHEN 325 MG/10.15 ML UDC NG PRN (20:29)
[2018-11-24] MEDS ORDERED: NS 500 ML IV ONE (22:30)
--- NOTE | 2018-11-24 23:17 | IPNPDOC ---
Date Seen The patient was seen on 11/24/18 at 9:30 AM and again at 12:30 PM. Progress Note Interval history: Patient was admitted to ICU, transfused PRBC. Patient is noted to have spontaneous bleeding from Central line site, noted to have worsening altered mental status, only responding to painful stimuli only. Able to maintain oxygen saturation. Noted to have severe coagulopathy. Patient one episodes of melena today. Due to patient's coagulopathy, worsening liver tests and clinical course, EGD was not done in morning. Exam: Vitals: Tachycardia, tachypnea, borderline BP. Abdomen: Soft, mildly distended, normal bowel sounds. Labs: reviewed. INR- 3.95 Impression: -- Altered mental status and worsening Liver panel -- DDX-- likely hepatic encephalopathy vs delirium tremens vs alcohol withdrawal.. IN view of worsening Liver panel cannot rule out Alcoholic hepatitis. -- GI bleeding in patient with decompensated liver cirrhosis with active alcohol use -- DDx-- Variceal bleeding vs MWT vs Gastritis/ esophagitis vs PUD. -- Decompensated liver cirrhosis ( CTP C, MELD-Na 30 ), Likely etiology Alcohol + Chronic hepatitis C, with hepatic encephalopathy, Grade 1 Varices in Last EGD in 2018, clinical mild ascites. Recommendations: - Patient's sister (Nallely Holbrook - who is also health care proxy to patient) -- is educated about the test results, and clinical status. In view of the severe coagulopathy and worsening liver functions, patient is suspected to be in liver failure, and due to active alcohol use and alcohol withdrawal symptoms the clinical status is complicated. Discussed in detail about the prognosis and EGD procedure in detail including anesthesia risks. - As per discussion patient's health care proxy, declined EGD and agreed for Palliative care. Also discussed about the Advanced directives considering the poor prognosis. - NG tube for medications -- including Xifaxan and Lactulose for hepatic encephalopathy. - For suspected component of alcoholic hepatitis, consider Pentoxifylline if available (not candidate for steroids at this time). - Palliative evaluation. - Supportive care as per recommendations in initial consult note. - NG tube nutrition - Thiamine and folic acid. - Alcohol withdrawal management as per priamry team. - Recall GI if any change in status. Plan of care discussed with patient's sister and primary team. . VS, I&O, 24H, Fishbone Laboratory Data 24H LABS Laboratory Tests 2 11/24/18 00:06: Ammonia 198H 11/24/18 05:14: Nucleated Red Blood Cells % (auto) 0.6H, Anion Gap 11, Glomerular Filtration Rate > 60.0, Blood Urea Nitrogen 31H, Creatinine 1.00, Sodium Level 123L, Po tassium Level 5.5H, Chloride Level 95L, Carbon Dioxide Level 17L, Calcium Level 6.4L, Aspartate Amino Transf (AST/SGOT) 698H, Alanine Aminotransferase (ALT/SGPT) 153H, Alkaline Phosphatase 59, Total Bilirubin 9.2#H, Total Protein 5.4L, Albumin 1.6L, Albumin/Globulin Ratio 0.42L 11/24/18 08:35: Blood Gas Bicarbonate Standard 20.6L, Arterial Blood pH 7.449, Arterial Blood Partial Pressure CO2 27.6L, Arterial Blood Partial Pressure O2 72.2L, Arterial Blood Total CO2 19.6L, Arterial Blood HCO3 18.7L, Arterial Blood Base Excess - 4.6L, Arterial Blood Oxygen Saturation 94.3L 11/24/18 11:06: Prothrombin Time 38.7H, Prothromb Time International Ratio 3.95 11/24/18 14:33: Nucleated Red Blood Cells % (auto) 0.8H, Prothrombin Time 28.6H, Prothromb Time International Ratio 2.71 CBC/BMP Laboratory Tests 11/24/18 00:06 11/24/18 05:14 Red Blood Count 2.34 L, Mean Corpuscular Volume 94.4, Mean Corpuscular Hemoglobin 31.6, Mean Corpuscular Hemoglobin Concent 33.5, Red Cell Distribution Width 17.0 H, Calcium Level 6.4 L, Aspartate Amino Transf (AST/SGOT) 698 H, Alanine Aminotransferase (ALT/SGPT) 153 H, Alkaline Phosphatase 59, Total Bilirubin 9.2 #H, Total Protein 5.4 L, Albumin 1.6 L 11/24/18 11:06 11/24/18 14:33 Red Blood Count 2.36 L, Mean Corpuscular Volume 93.2, Mean Corpuscular Hem oglobin 32.2, Mean Corpuscular Hemoglobin Concent 34.5, Red Cell Distribution Width 16.8 H 11/24/18 17:59 Microbiology Microbiology 11/23/18 Blood Culture - Preliminary, Resulted No growth after 24 hours . All specim... 11/23/18 Blood Culture - Preliminary, Resulted No growth after 24 hours . All specim... JAMES VICKERS MD Nov 24, 2018 23:17
[2018-11-25] VITALS (42 sets, daily range): BP systolic 83–144; BP diastolic 54–76
[2018-11-25 00:37] LABS: HEMATOCRIT 23.6 % (42.0-52.0); HEMOGLOBIN 8.1 g/dl (13.5-17.5)
[2018-11-25] MEDS: IPRATROPIUM 0.5MG/ALBUTEROL 2.5MG INH SOL UD 3ML (DUONEB)(J7620) NEB SCH ×4 (01:47→18:16)
[2018-11-25] MEDS: PANTOPRAZOLE SODIUM 40 MG in D5W 50 ML IV SCH ×5 (03:02→22:49)
[2018-11-25] MEDS: LACTULOSE 20 GM/30 ML SYRUP UD NG SCH ×4 (05:22→23:28)
[2018-11-25 05:51] LABS: HEMATOCRIT 23.4 % (42.0-52.0); HEMOGLOBIN 7.9 g/dl (13.5-17.5); MEAN CORPUSCULAR HEMOGLOBIN 31.2 pg (27.0-33.0); MEAN CORPUSCULAR HGB CONC 33.8 g/dl (32.0-36.5); MEAN CORPUSCULAR VOLUME 92.5 fl (80.0-96.0); RED BLOOD COUNT 2.53 10^6/uL (4.30-6.10); WHITE BLOOD COUNT 8.4 10^3/uL (4.0-10.0)
[2018-11-25 05:52] LABS: PLATELET COUNT, AUTOMATED 53 10^3/uL (150-450)
[2018-11-25 06:18] LABS: ALBUMIN 1.6 GM/DL (3.2-5.2); ALT/SGPT 186 U/L (12-78); BILIRUBIN,TOTAL 8.5 MG/DL (0.2-1.0); BLOOD UREA NITROGEN 26 MG/DL (7-18); CALCIUM LEVEL 6.2 MG/DL (8.5-10.1); CARBON DIOXIDE LEVEL 20 MEQ/L (21-32); CHLORIDE LEVEL 105 MEQ/L (98-107); CREATININE FOR GFR 0.61 MG/DL (0.70-1.30); GLOMERULAR FILTRATION RATE > 60.0 (>60); GLUCOSE, FASTING 79 MG/DL (70-100); POTASSIUM SERUM 3.9 MEQ/L (3.5-5.1); SODIUM LEVEL 133 MEQ/L (136-145); TOTAL PROTEIN 5.3 GM/DL (6.4-8.2)
--- NOTE | 2018-11-25 06:35 | ECGEPIP ---
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
[2018-11-25] MEDS: NS 1,000 ML IV SCH ×3 (07:06→20:38)
[2018-11-25] MEDS: BUDESONIDE 0.25 MG/2 ML INHALATION SUSPENSION INH SCH (07:49)
--- NOTE | 2018-11-25 08:44 | IPNPDOC ---
Text Note Date of Service The patient was seen on 11/25/18. NOTE S: Patient mumbling but does not respond to verbal stimuli; moves away from p ain. O: Vitals as below General: obtunded, not alert Heart - tachycardic, no murmur LCTA with scattered wheeze, no rhonchi, no rales Abdomen soft, increased bowel sounds Ext no edema to ankles, left arm swelling and bruise resolving A/P: 1) acute blood loss anemia due to acute upper GI bleed with hematemsis Consult mud jack nozzleman for co management GI consulted - Pletal not available via NGT; Trental , lactulose, rifaxmin, Octreotide x 5 days and rocephin IV x 7 days. Protonix IV drip Transfused 6 unit pRBC , 1 FFP serial H/H patient started on cefoxtin on admission 2) liver failure - worsening LFT 3) Alcoholic cirrhosis with ascites 4) Chronic Hepatitis C 5) Hepatitis encephalopathy - check daily ammonia level , lactulose, rifaximin 6) COPD without exacerbation - nebs 7) thrombocytopenia due to cirrhosis - monitor 8) EtOH withdraw - CIWA protocol/ativan; IV thiamine, IV multivit/folate DVT prophylaxis: SCD; hold due to thrombocytopenia and active bleed, CODE: DNR/DNI Prognosis: grave/poor VS,Fishbone, I+O VS, Fishbone, I+O Laboratory Tests 11/24/18 11:06 11/24/18 14:33 Red Blood Count 2.36 L, Mean Corpuscular Volume 93.2, Mean Corpuscular Hemoglobin 32.2, Mean Corpuscular Hemoglobin Concent 34.5, Red Cell Distribution Width 16.8 H 11/24/18 17:59 11/25/18 00:02 11/25/18 05:23 Red Blood Count 2.53 L, Mean Corpuscular Volume 92.5, Mean Corpuscular Hemoglobin 31.2, Mean Corpuscular Hemoglobin Concent 33.8, Red Cell Distribution Width 17.9 H, Calcium Level 6.2 L, Aspartate Amino Transf (AST/SGOT) 804 H, Alanine Aminotransferase (ALT/SGPT) 186 H, Alkaline Phosphatase 54, Total Bilirubin 8.5 H, Total Protein 5.3 L, Albumin 1.6 L Vital Signs Date Time Temp Pulse Resp B/P (MAP) Pulse Ox O2 Delivery O2 Flow Rate FiO2 11/25/18 06:00 123 115/71 (86) 96 Room Air 11/25/18 00:00 99.0 16 I&O- Last 24 Hours up to 6 AM 11/25/18 06:00 Intake Total 5349 ml Output Total 2785 ml Balance 2564 ml JONELLE CASTILLO DO Nov 25, 2018 07:33
[2018-11-25] MEDS: rifAXIMin 550 MG TAB (XIFAXAN) NG SCH ×2 (09:10→20:37)
[2018-11-25] MEDS: FOLIC ACID 1 MG TAB PO SCH (09:11)
[2018-11-25] MEDS: MULTIVITAMINS/MINERALS THERAP 1 TAB PO SCH (09:11)
[2018-11-25] MEDS: cefTRIAXone SOD 1 GM in D5W MINI-BAG PLUS 50 ML IV SCH (09:12)
[2018-11-25] MEDS: THIAMINE HCL 200 MG/2 ML VIAL (J3411) IV SCH (09:15)
[2018-11-25] MEDS ORDERED: NS 1,000 ML IV PRN (14:15)
[2018-11-25 14:47] LABS: HEMATOCRIT 22.4 % (42.0-52.0); HEMOGLOBIN 7.7 g/dl (13.5-17.5)
--- NOTE | 2018-11-25 15:06 | IPN ---
DATE: 11/25/2018 PULMONARY CRITICAL CARE NOTE Patient is awake, conversant. States he wants to go home. He is tachycardiac, but less tachycardic than yesterday. Pulse now down to 123 from 140s. He is having numerous bowel movements; however, ammonia level has yet to be rechecked. Has swelling of his left arm and elbow x-rays have been obtained but no ultrasound has been obtained; however, the patient would not be a candidate for any anticoagulation anyway. He would be at high risk for any procedure. Therefore, at this point in time I will leave diagnostic testing up to the primary physician. I do suspect there may be a thromboembolism in the left arm. It is day #3 of his admission, so he is at high risk for alcohol withdrawal at this point from now on over the next two days. Would continue to monitor for the need for benzodiazepine therapy, but be cautious with his liver impairment. PHYSICAL EXAMINATION: Sinus tachycardia with a pulse of 123, blood pressure 115/71, oxygen saturation 96% on room air. Temperature is 99.0, maximum temperature (T-max) is 101.5. He is net positive 5 liters yesterday. GENERAL: Awake. Voice is fairly clear. He answers questions, but with little insight. HEENT: Sclerae clear anicteric. Pupils equal, react to light. Mucous membranes without lesions. Neck is supple. No tracheal deviation or mass. Minimal oozing of blood from the right internal jugular (IJ). LYMPHATICS: No cervical, supraclavicular or axillary adenopathy. CARDIAC: Tachycardiac. S1, S2, without audible murmur, rub or gallop. Point of maximum impulse (PMI) is nondisplaced. PULMONARY: Clear to auscultation without rales, rhonchi or wheezes. No dullness to percussion. ABDOMEN: Minimally distended. Soft. Normal to hyperactive bowel sounds. There is no tenderness. There is minimal ascites based on percussion. EXTREMITIES: The left arm has pitting edema to the shoulder. Much different than the right arm. There is bruising over the medial aspect and elbow of the left arm. It appears to be an older bruise based on the coloration of the bruise. There is no open lesion. No increased warmth. No erythema or suggestion of cellulitis. There is bilateral lower extremity edema that is minimal. LABORATORY EVALUATION: Shows sodium 133, potassium 3.9, chloride 105, bicarbonate of 20, BUN of 26, creatinine of 0.61. White blood cell count 8.4, hemoglobin 7.9, hematocrit of 23.4 and platelet count of 53. Total bilirubin is down to 8.5, AST is 804, ALT of 186, albumin of 1.6. INR last checked at 2.7. IMPRESSION: 1. Thrombocytopenia. Trigger of 20 for transfusion or evidence of bleeding. 2. Anemia. Trigger of 7.0 or signs of acute bleeding. 3. Acute on chronic liver failure on ceftriaxone, rifaximin, octreotide, Protonix drip. No evidence of active bleeding currently. Will continue to monitor. 4. Sinus tachycardia. Decreasing; however, patient at risk for alcohol withdrawal, especially over the next two days. Remains on folic acid, multivitamin, thiamine, but is currently on no benzodiazepine therapy. Would consider closely monitoring while on low-dose benzodiazepine therapy, as he will have prolonged affect of the medication. At this point in time, will sign off. If patient decompensates, please feel free to call the service and we will be happy to see him again.
[2018-11-25] MEDS ORDERED: OXAZEPAM 10 MG CAP PO ONE (16:00)
[2018-11-25] MEDS: ACETAMINOPHEN 325 MG/10.15 ML UDC NG PRN (16:22)
[2018-11-25] MEDS: OCTREOTIDE ACETATE 1,200 MCG in NS 238.8 ML IV SCH (20:36)
[2018-11-25 21:54] LABS: HEMATOCRIT 24.5 % (42.0-52.0); HEMOGLOBIN 8.2 g/dl (13.5-17.5)
[2018-11-26] VITALS (22 sets, daily range): BP systolic 92–145; BP diastolic 52–102
[2018-11-26] MEDS: IPRATROPIUM 0.5MG/ALBUTEROL 2.5MG INH SOL UD 3ML (DUONEB)(J7620) NEB SCH ×5 (01:58→23:50)
[2018-11-26] MEDS: BUDESONIDE 0.25 MG/2 ML INHALATION SUSPENSION INH SCH ×3 (01:58→20:41)
[2018-11-26] MEDS: NS 1,000 ML IV SCH ×2 (03:00→09:42)
[2018-11-26] MEDS: PANTOPRAZOLE SODIUM 40 MG in D5W 50 ML IV SCH ×4 (04:53→19:59)
[2018-11-26] MEDS: LACTULOSE 20 GM/30 ML SYRUP UD NG SCH ×3 (05:01→17:42)
[2018-11-26 05:16] LABS: HEMATOCRIT 24.3 % (42.0-52.0); HEMOGLOBIN 8.1 g/dl (13.5-17.5); MEAN CORPUSCULAR HEMOGLOBIN 30.2 pg (27.0-33.0); MEAN CORPUSCULAR HGB CONC 33.3 g/dl (32.0-36.5); MEAN CORPUSCULAR VOLUME 90.7 fl (80.0-96.0); RED BLOOD COUNT 2.68 10^6/uL (4.30-6.10); WHITE BLOOD COUNT 8.9 10^3/uL (4.0-10.0)
[2018-11-26 05:24] LABS: PLATELET COUNT, AUTOMATED 55 10^3/uL (150-450)
[2018-11-26 05:32] LABS: INR 2.75
[2018-11-26 05:40] LABS: ALBUMIN 1.6 GM/DL (3.2-5.2); ALT/SGPT 136 U/L (12-78); BLOOD UREA NITROGEN 10 MG/DL (7-18); CALCIUM LEVEL 6.2 MG/DL (8.5-10.1); CARBON DIOXIDE LEVEL 21 MEQ/L (21-32); CHLORIDE LEVEL 109 MEQ/L (98-107); CREATININE FOR GFR 0.53 MG/DL (0.70-1.30); GLOMERULAR FILTRATION RATE > 60.0 (>60); GLUCOSE, FASTING 90 MG/DL (70-100); POTASSIUM SERUM 3.3 MEQ/L (3.5-5.1); SODIUM LEVEL 135 MEQ/L (136-145); TOTAL PROTEIN 5.4 GM/DL (6.4-8.2)
[2018-11-26] MEDS: FOLIC ACID 1 MG TAB PO SCH (08:25)
[2018-11-26] MEDS: rifAXIMin 550 MG TAB (XIFAXAN) NG SCH ×2 (08:25→20:02)
[2018-11-26] MEDS: MULTIVITAMINS/MINERALS THERAP 1 TAB PO SCH (08:25)
[2018-11-26] MEDS: cefTRIAXone SOD 1 GM in D5W MINI-BAG PLUS 50 ML IV SCH (08:25)
[2018-11-26] MEDS: THIAMINE HCL 200 MG/2 ML VIAL (J3411) IV SCH (08:27)
[2018-11-26] MEDS: KCL 20MEQ IN 100ML SWI (KRUN) 20 MEQ in APPROPRIATE DILUENT 1 EA IV SCH ×6 (11:50→15:34)
[2018-11-26] MEDS: LORazepam 2 MG/ML VIAL (J2060) IV PRN (12:07)
--- NOTE | 2018-11-26 13:35 | REP ---
Portable right tibia-fibula four views : There is no fracture or dislocation. Mineralization and joint spaces are normal. There are no calcifications or foreign bodies. Impression: Negative portable right tibia-fibula . Electronically Signed by Terry Felder MD 11/26/2018 01:27 P
--- NOTE | 2018-11-26 13:37 | REP ---
Portable left humerus two views : There is no fracture or dislocation. Mineralization and joint spaces are normal. There are no calcifications or foreign bodies. The distal humeral condyles are excluded at the inferior film margin Impression: Negative portable left humerus except that the distal humeral condyles are excluded at the inferior film margin. Electronically Signed by Terry Felder MD 11/26/2018 01:28 P
--- NOTE | 2018-11-26 13:40 | REP ---
Portable left forearm two views : There is no fracture or dislocation. Mineralization and joint spaces are normal. There are no calcifications or foreign bodies. Impression: Negative portable left forearm . Electronically Signed by Terry Felder MD 11/26/2018 01:31 P
[2018-11-26] MEDS ORDERED: OXAZEPAM 10 MG CAP PO ONE (13:45)
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
[2018-11-26] MEDS ORDERED: PHYTONADIONE 5 MG TAB PO ONE (14:45)
[2018-11-26] MEDS ORDERED: FUROSEMIDE 20 MG/2 ML VIAL (J1940) IV ONE (14:45)
--- NOTE | 2018-11-26 14:52 | REP ---
Portable chest, 02:34 p.m., single AP view with the patient upright: Comparison is 03/09/2008. The lung souza are clear. The cardiac size is normal. The ricky, mediastinum, and skeletal structures are unremarkable. Impression: Negative portable chest. Electronically Signed by Terry Felder MD 11/26/2018 02:44 P
[2018-11-26] MEDS ORDERED: metroNIDAZOLE 500 MG in APPROPRIATE DILUENT 1 EA IV SCH (15:00)
--- NOTE | 2018-11-26 15:31 | IPNPDOC ---
Text Note Date of Service The patient was seen on 11/26/18. NOTE Critical Care Note Patient was seen and examined today in the ICU. He is alert and answers questions appropriately. He states he has had a cough which is nonproductive. He state the bruising on his side was due to a fall. He denies any chest pain, shortness of breath, nausea/vomiting, abdominal pain, arm pain, leg pain. EXAMINATION: VITAL SIGNS: See below GENERAL: Pt is sitting up in bed, appears comfortable, in no acute respiratory distress. There is blood oozing from around the central venous line. HEENT: Sclera icterus bilaterally. Oral mucosa is moist. Dentition is poor. CARDIAC: Regular rate and rhythm, normal S1 and normal S2, no murmurs, rubs, or gallops LUNGS: Diffuse wheezing. Crackle and decreased lung sounds at the bases of bilateral lungs. ABDOMEN: moderately rigid, worse in expiration, distended, nontender. EXTREMITIES: Left upper arm with pitting edema and ecchymoses. Right lower extremity with pitting edema. SKIN: Ecchymoses along the left side of the body. Anasarca. NEURO: Resting tremor present. There is a 2 beat horizontal nystagmus. DIAGNOSTIC STUDIES: See below for laboratory results. ASSESSMENT/PLAN: 1. Acute blood loss anemia secondary to upper GI bleed with thrombocytopenia and coagulopathy H/H has stabilized, continue to follow. Discontinued octreotide as there is no evidence of benefit after 72 hours of treatment. Switched protonix drip to protonix BID. Would consider an EGD if bleeding does recur. Will give a dose a vitamin K which may help with his clotting factors if he is undernourished. 2. Decompensated alcoholic cirrhosis with likely esophageal bleeding, ascites, hepatic encephalopathy Continue to monitor for GI bleed, may consider EGD if bleeding recurs. Worsening ascites over the past day. Started on spironolactone and furosemide. Monitor blood pressure for hypotension. May consider paracentesis with albumin to drain fluid if no improvement with diuresis Continue to monitor thrombocytopenia, transfuse if platelets less than 20K or if signs of active bleeding Ammonia levels improved. Continue to monitor for hepatic encephalopathy. Continue with lactulose with a goal of 3-4 BM per day. Continue with rifaximin. 3. Pneumonia, likely aspiration related He has spiked fevers over the past couple days. Started on vancomycin and zosyn for broad coverage. Sputum cultures and blood cultures pending. 4. Alcohol withdrawal Continue to monitor CIWA protocol. Ativan as needed, and will start valium. Cont inue thiamine, folate, and multivitamin supplementation. Seizure precautions 5. Peripheral edema Pt has unilateral left arm edema and unilateral right leg edema. Would consider duplex U/S to evaluate for DVT. He may not be a candidate for anticoagulation at this time, but might consider an IVC filter if a lower extremity DVT is present. 6. History of COPD Continue with duoneb treatments and inhaled budesonide. if no improvement in wheezing with diuresis may require steroids VS,Fishbone, I+O VS, Fishbone, I+O Laboratory Tests 11/25/18 21:32 11/26/18 04:54 Calcium Level 6.2 L Aspartate Amino Transf (AST/SGOT) 377 H Alanine Aminotransferase (ALT/SGPT) 136 H Alkaline Phosphatase 57 Total Bilirubin 7.0 H Total Protein 5.4 L Albumin 1.6 L Vital Signs Date Time Temp Pulse Resp B/P (MAP) Pulse Ox O2 Delivery O2 Flow Rate FiO2 11/26/18 13:25 119 20 11/26/18 12:00 99.7 105/70 (82) 97 Room Air I&O- Last 24 Hours up to 6 AM 11/26/18 06:00 Intake Total 5350 ml Output Total 2090 ml Balance 3260 ml GME ATTESTATION GME ATTESTATION My faculty preceptor for this patient encounter was physically present during the encounter and was fully available. All aspects of the patient interview, examination, medical decision making process, and medical care plan development were reviewed and approved by the faculty preceptor. The faculty preceptor is aware and concurs with the plan as stated in the body of this note and will attest to such by her cosignature. ATTENDING NOTE I, Holly Buckley, have conducted an independent history and examination of the patient and agree with the above detailed plan as discussed during rounds. LUPE NICK PGY-1 Nov 26, 2018 15:31 HOLLY BUCKLEY MD Nov 27, 2018 10:38
[2018-11-26] MEDS: SPIRONOLACTONE 25 MG TAB PO SCH (15:34)
[2018-11-26] MEDS: PIPERACILLIN/TAZOBACTAM SOD 3.375 GM in D5W MINI-BAG PLUS 50 ML IV SCH ×2 (15:35→21:21)
[2018-11-26] MEDS ORDERED: VANCOMYCIN HCL 1,000 MG, VIAL MATE ADAPTER 1 EACH in D5W 250 ML IV SCH (17:00)
--- NOTE | 2018-11-26 17:14 | CR.PDOC ---
General Date of Consultation: Nov 23, 2018 Referring Provider: Morgan Fall MD Attending Physician: Morgan Fall MD Consultation REASON FOR CONSULTATION/CHIEF COMPLAINT: [48 year old male with chronic cirrhosis, alcohol abuse in hospital with anemia due to sevre blood loss. He has severe hepatic disease. [facility] care [facility] by [facility]. HISTORY OF PRESENT ILLNESS: 48 year old with end stage liver disease, active alcoholism, admitted in ICU on several drips, receiving lactulose to reduce ammonia load. ALLERGIES: Please see below. HOME MEDICATIONS: Please see below. I asked Albaro what his understanding of his disease is. He stated if he stops drinking he will live. If he continues to drink he will . He is DNR/DNI and has a HCP. He stated he thinks he can quit drinking without any support. This is an optimistic prediction given his history. If he continues to drink alcohol following discharge, his prognosis is likely very grim, therefore, he is more likely a hospice patient if he is willing to accept this. Vital Signs/I&O Vital Signs Date Time Temp Pulse Resp B/P (MAP) Pulse Ox O2 Delivery O2 Flow Rate FiO2 11/26/18 14:00 126 141/102 11/26/18 13:25 20 11/26/18 12:00 99.7 97 Room Air I&O- Last 24 Hours up to 6 AM 11/26/18 06:00 Intake Total 5350 ml Output Total 2090 ml Balance 3260 ml Laboratory Data Labs 24H Laboratory Tests 2 11/26/18 04:54: Nucleated Red Blood Cells % (auto) 1.1H, Prothrombin Time 29.0H, Prothromb Time International Ratio 2.75, Anion Gap 5L, Glomerular Filtration Rate > 60.0, Blood Urea Nitrogen 10#, Creatinine 0.53L, Sodium Level 135L, Potassium Level 3.3L, Chloride Level 109H, Carbon Dioxide Level 21, Calcium Level 6.2L, Aspartate Amino Transf (AST/SGOT) 377H, Alanine Aminotransferase (ALT/SGPT) 136H, Alkaline Phosphatase 57, Total Bilirubin 7.0H, Total Protein 5.4L, Albumin 1.6L, Ammonia 39H, Albumin/Globulin Ratio 0.42L 11/26/18 15:58: CBC/BMP Laboratory Tests 11/25/18 21:32 11/26/18 04:54 Red Blood Count 2.68 L, Mean Corpuscular Volume 90.7, Mean Corpuscular Hemoglobin 30.2, Mean Corpuscular Hemoglobin Concent 33.3, Red Cell Distribution Width 19.6 H, Calcium Level 6.2 L, Aspartate Amino Transf (AST/SGOT) 377 H, Alanine Aminotransferase (ALT/SGPT) 136 H, Alkaline Phosphatase 57, Total Bilirubin 7.0 H, Total Protein 5.4 L, Albumin 1.6 L Microbiology Microbiology 11/26/18 Blood Culture, Received Pending 11/26/18 Blood Culture, Received Pending 11/23/18 Blood Culture - Preliminary, Resulted No Growth after 48 hours. All Specime... 11/23/18 Blood Culture - Preliminary, Resulted No Growth after 48 hours. All Specime... Allergies Coded Allergies: No Known Allergies (Verified , 07/23/18) Home Medications Scheduled Folic Acid (Folic Acid) 1 Mg Tablet, 1 MG PO DAILY, (Reported) Furosemide (Furosemide) 20 Mg Tablet, 20 MG PO DAILY, (Reported) Magnesium Oxide (Magnesium Oxide) 250 Mg Tab, 250 MG PO DAILY, (Reported) Multivitamin (Multivitamins) 1 Each Tablet, 1 TAB PO DAILY, (Reported) Rifaximin (Xifaxan) 550 Mg Tablet, 550 MG PO BID, (Reported) Spironolactone (Spironolactone) 25 Mg Tablet, 25 MG PO DAILY, (Reported) Thiamine HCl (Thiamine HCl) 100 Mg Tab, 100 MG PO DAILY, (Reported) Miscellaneous Medications [Patient Comments] , (Reported) PATIENT IS A POOR MEDICATION HISTORIAN. RX LISTED ARE FOR ACTIVE PRESCRIPTIONS AT HIS PHARMACY, EXCEPT FOR THE OTC MEDICATIONS Bibi HERNANDEZ Nov 26, 2018 17:14
[2018-11-26] MEDS: diazePAM 10 MG TAB PO SCH (17:42)
[2018-11-26] MEDS ORDERED: VANCOMYCIN HCL 750 MG, VIAL MATE ADAPTER 1 EACH in D5W 250 ML IV ONE (18:00)
--- NOTE | 2018-11-26 20:17 | RO ---
DATE OF PROCEDURE: 11/24/2018 PREOPERATIVE DIAGNOSIS: Hypovolemia. POSTOPERATIVE DIAGNOSIS: Hypovolemia. PROCEDURE PERFORMED: Right internal jugular central venous catheter placement. SURGEON: Dr. Neil Franks CANDY BUTCHER: ANESTHESIA: DESCRIPTION OF PROCEDURE: The patient was seen in the intensive care unit critically ill, hypotensive with insufficient venous access and emergent central line placement was determined. The skin overlying the right neck was prepped with Betadine, draped in sterile fashion. A previously placed right internal jugular catheter had been displaced and the wire was placed through the distal port and into the venous system. The previous catheter was removed and a triple-lumen catheter prepared and placed using sterile technique over the wire and into the right internal jugular venous system. The catheter was advanced to 20 cm, and the wire was removed. The ports were flushed and found to be patent. The catheter was sewn in place using a #2-0 silk suture and a sterile dressing applied. A postprocedure chest x-ray has been performed. There were no complications.
[2018-11-26] MEDS: OCTREOTIDE ACETATE 1,200 MCG in NS 238.8 ML IV SCH (22:14)
[2018-11-27] VITALS (9 sets, daily range): BP systolic 110–148; BP diastolic 67–89
[2018-11-27] MEDS: PANTOPRAZOLE SODIUM 40 MG in D5W 50 ML IV SCH ×3 (04:23)
[2018-11-27] MEDS: PIPERACILLIN/TAZOBACTAM SOD 3.375 GM in D5W MINI-BAG PLUS 50 ML IV SCH ×2 (04:23→10:54)
[2018-11-27 04:54] LABS: MEAN CORPUSCULAR HEMOGLOBIN 31.7 pg (27.0-33.0); MEAN CORPUSCULAR HGB CONC 33.3 g/dl (32.0-36.5); MEAN CORPUSCULAR VOLUME 95.1 fl (80.0-96.0); RED BLOOD COUNT 2.84 10^6/uL (4.30-6.10); WHITE BLOOD COUNT 10.3 10^3/uL (4.0-10.0)
[2018-11-27 04:55] LABS: PLATELET COUNT, AUTOMATED 52 10^3/uL (150-450)
[2018-11-27 05:09] LABS: INR 2.42; PROTHROMBIN TIME 26.2 SECONDS (11.8-14.0)
[2018-11-27 05:13] LABS: ALBUMIN 1.7 GM/DL (3.2-5.2); ALT/SGPT 125 U/L (12-78); BLOOD UREA NITROGEN 7 MG/DL (7-18); CALCIUM LEVEL 6.6 MG/DL (8.5-10.1); CARBON DIOXIDE LEVEL 22 MEQ/L (21-32); CHLORIDE LEVEL 103 MEQ/L (98-107); CREATININE FOR GFR 0.57 MG/DL (0.70-1.30); GLOMERULAR FILTRATION RATE > 60.0 (>60); GLUCOSE, FASTING 103 MG/DL (70-100); POTASSIUM SERUM 3.4 MEQ/L (3.5-5.1); SODIUM LEVEL 132 MEQ/L (136-145); TOTAL PROTEIN 5.9 GM/DL (6.4-8.2)
[2018-11-27] MEDS: LACTULOSE 20 GM/30 ML SYRUP UD NG SCH ×3 (05:52→12:07)
[2018-11-27] MEDS: diazePAM 10 MG TAB PO SCH ×3 (05:52→12:07)
[2018-11-27] MEDS: IPRATROPIUM 0.5MG/ALBUTEROL 2.5MG INH SOL UD 3ML (DUONEB)(J7620) NEB SCH ×2 (06:12→13:21)
[2018-11-27] MEDS: BUDESONIDE 0.25 MG/2 ML INHALATION SUSPENSION INH SCH (06:12)
[2018-11-27] MEDS ORDERED: POTASSIUM CHLORIDE 10 MEQ SR TABLET PO ONE (07:30)
[2018-11-27] MEDS: MULTIVITAMINS/MINERALS THERAP 1 TAB PO SCH (08:28)
[2018-11-27] MEDS: FOLIC ACID 1 MG TAB PO SCH (08:28)
[2018-11-27] MEDS: rifAXIMin 550 MG TAB (XIFAXAN) NG SCH (08:28)
[2018-11-27] MEDS: THIAMINE HCL 200 MG/2 ML VIAL (J3411) IV SCH (08:29)
[2018-11-27] MEDS: SPIRONOLACTONE 25 MG TAB PO SCH (08:29)
[2018-11-27] MEDS: LORazepam 2 MG/ML VIAL (J2060) IV PRN ×2 (08:45→12:28)
[2018-11-27] MEDS ORDERED: predniSONE 20 MG TAB PO SCH (09:00)
[2018-11-27] MEDS ORDERED: THIAMINE 100 MG TAB PO SCH (09:00)
[2018-11-27] MEDS ORDERED: FUROSEMIDE 40 MG/4 ML VIAL (J1940) IV SCH (10:00)
--- NOTE | 2018-11-27 10:22 | IPNPDOC ---
Text Note Date of Service The patient was seen on 11/27/18. NOTE Critical Care Note Patient was seen and examined today in the ICU. He is alert and oriented only to person. He answers questions appropriately. He denies any headaches, dizziness, hallucinations, chest pain, cough, shortness of breath, nausea/vomiting, abdominal pain, arm pain, leg pain, leg swelling. He was afebrile overnight and his blood pressure has been stable with the added diuretics. EXAMINATION: VITAL SIGNS: See below GENERAL: Pt is sitting up in bed, appears comfortable, in no acute respiratory distress. HEENT: Sclera icteric. Oral mucosa is moist. Dentition is poor. CARDIAC: Regular rate and rhythm, normal S1 and normal S2, no murmurs, rubs, or gallops LUNGS: Diffuse wheezing. Crackle and decreased lung sounds at the bases of bilateral lungs. ABDOMEN: moderately rigid, worse in expiration, distended, nontender. EXTREMITIES: Left upper arm with pitting edema and ecchymoses. Right lower extremity with pitting edema. SKIN: Ecchymoses along the left side of the body. Anasarca along the dependent areas including his posterior thighs and flanks. NEURO: Alert and oriented x1 to person. Resting tremor present, improved from yesterday. There is a 2 beat horizontal nystagmus. DIAGNOSTIC STUDIES: See below for laboratory results. No new imaging to review. ASSESSMENT/PLAN: 1. Acute blood loss anemia secondary to GI bleed H/H has stabilized and improving, continue to monitor. Discontinued octreotide as there is no evidence of benefit after 72 hours of treatment. Switched protonix drip to protonix BID. Would consider an EGD if bleeding does recur. 2. Decompensated alcoholic cirrhosis with likely esophageal bleeding, ascites, hepatic encephalopathy Continue to monitor for GI bleed, may consider EGD if bleeding recurs. Ascites does not appear clinically improved from yesterday. His I/O is still net positive despite diuretics yesterday. Increased the doses of both spironolactone and furosemide today. Monitor blood pressure for hypotension. May consider paracentesis to drain fluid. Continue to monitor thrombocytopenia. Mental status stable, he continues to be oriented only to person. Continue to monitor for hepatic encephalopathy. Continue with lactulose with a goal of 3-4 BM per day. Continue with rifaximin. He also had increased LFTs and hx of active alcohol abuse with suspicion of alcoholic hepatitis. He had an elevated Maddrey's Discriminat Function (MDF) score which indicates he could benefit from steriod treatment. Started him on 40mg prednisone. MELD score 27 MDF score 70 3. Pneumonia, likely aspiration related He has previously spiked fevers but was afebrile overnight last night. His WBCs are elevated today at 10.3. He is on day #2 of Zosyn. Vancomycin was discontinued because of the negative MRSA screen. Sputum cultures and blood cultures pending. Antibiotic may be adjusted based on culture and sensitivities. 4. Alcohol withdrawal Continue to monitor CIWA protocol. Continue with scheduled doses of valium. Co ntinue with ativan as needed based on CIWA protcol. Continue thiamine, folate, and multivitamin supplementation 5. Peripheral edema Pt has unilateral left arm edema and unilateral right leg edema. Would suggest duplex U/S to evaluate for DVT. He may not be a candidate for anticoagulation at this time, but might consider an IVC filter if a lower extremity DVT is present. 6. History of COPD, possible exacerbation Continue with duoneb treatments and inhaled budesonide. He may also receive some pulmonary benefit from the prednisone treatment which was started for concern of alcoholic hepatitis and also for possible exacerbation Code Status: DNR/DNI Prognosis: poor, spoke with hospitalist who plans to discuss prognosis and further care with the family and health care proxy VS,Matt, I+O VS, Matt, I+O Laboratory Tests 11/27/18 04:26 Calcium Level 6.6 Aspartate Amino Transf (AST/SGOT) 226 Alanine Aminotransferase (ALT/SGPT) 125 Alkaline Phosphatase 72 Total Bilirubin 9.0 Total Protein 5.9 Albumin 1.7 Prothrombin Time 26.2 INR 2.42 11/26/18 15:58: Methicillin-Resist S.aureus DNA PCR NOT DETECTED Vital Signs Date Time Temp Pulse Resp B/P (MAP) Pulse Ox O2 Delivery O2 Flow Rate FiO2 11/27/18 08:00 113 148/75 11/27/18 06:00 18 94 Room Air 11/27/18 04:00 98.1 I&O- Last 24 Hours up to 6 AM 11/27/18 06:00 Intake Total 4403 ml Output Total 2075 ml Balance 2328 ml GME ATTESTATION GME ATTESTATION My faculty preceptor for this patient encounter was physically present during the encounter and was fully available. All aspects of the patient interview, examination, medical decision making process, and medical care plan development were reviewed and approved by the faculty preceptor. The faculty preceptor is aware and concurs with the plan as stated in the body of this note and will attest to such by his/her cosignature. ATTENDING NOTE I, Holly Buckley, have conducted an independent history and physical exam and agree with the above plan as detailed by the resident and discussed during bedside rounds LUPE NICK PGY-1 Nov 27, 2018 10:22 HOLLY BUCKLEY MD Nov 28, 2018 21:33
[2018-11-27] MEDS ORDERED: SPIRONOLACTONE 25 MG TAB PO ONE (10:30)
--- NOTE | 2018-11-27 11:31 | IPNPDOC ---
Subjective Date Seen The patient was seen on 11/27/18. Subjective Chief Complaint/HPI Patient seen and examined at bedside. Remains tremulous and confused. However, hemodynamically stable. No acute overnight events noted. Objective Physical Examination General Exam: Positive: No Acute Distress, Other (patient awake, asking for a scale mechanic for a cigarette. Not oriented to place, situation.) Eye Exam: Positive: Sclera icteric ENT Exam: Positive: Atraumatic Chest Exam: Positive: Wheezing, Diminished; Negative: Rales Heart Exam: Positive: Tachycardic, Normal S1, Normal S2 Telemetry: Positive: Sinus Abdomen Exam: Positive: Hepatospenomegaly, Other (abdomen noted to be distended); Negative: Tenderness Extremity Exam: Positive: Other (bruising noted on the left upper extremity); Negative: Tenderness Skin Exam: Positive: Other skin issue (large ecchymosis left side of body) Neuro Exam: Positive: Other Assessment /Plan Plan/VTE VTE Prophylaxis Ordered?: No VTE Exclusion Pharmacological: Bleeding Risk Plan Liver Failure, Cirrhosis 2/2 Alcohol Abuse Patient with continued alcohol abuse--not a candidate for transplant MELD score 27 (was significantly higher earlier in admission) Patient on diuretic therapy for volume optimization Poor prognosis given overall clinical condition, patient is a DNR/DNI, palliative consult noted Will reach out to the patient's HCP for further discussion Acute blood loss anemia due to acute upper GI bleed with hematemsis s/p Transfusion of 7 Units of PRBC's and 1 Unit of FFP total--hgb now stable GI on board---EGD was deferred due to risk after discussion with family according to Dr. Rodriguez Patient with no more episodes of active bleeding Cont Protonix BID We will cont to monitor Alcohol Abuse, Withdrawal CIWA protocol ordered Chronic Hepatitis C Hepatic encephalopathy Cont lactulose, rifaximin COPD without exacerbation Cont Albuterol, Pulmicort Started on PO Prednisone Thrombocytopenia, Coagulopathy due to cirrhosis We will cont to monitor, no indication for transfusion at this time DVT Prophylaxis SCDs/TEDs VS, I&O, 24H, Fishbone Vital Signs/I&O Vital Signs Date Time Temp Pulse Resp B/P (MAP) Pulse Ox O2 Delivery O2 Flow Rate FiO2 11/27/18 08:00 113 148/75 11/27/18 06:00 18 94 Room Air 11/27/18 04:00 98.1 I&O- Last 24 Hours up to 6 AM 11/27/18 06:00 Intake Total 4403 ml Output Total 2075 ml Balance 2328 ml Laboratory Data 24H LABS Laboratory Tests 2 11/26/18 15:58: Methicillin-Resist S.aureus DNA PCR NOT DETECTED 11/27/18 04:26: Nucleated Red Blood Cells % (auto) 0.7H, Immature Platelet Fraction 3.2, Prothrombin Time 26.2H, Prothromb Time International Ratio 2.42, Anion Gap 7L, Glomerular Filtration Rate > 60.0, Blood Urea Nitrogen 7, Creatinine 0.57L, Sodium Level 132L, Potassium Level 3.4L, Chloride Level 103, Carbon Dioxide Level 22, Calcium Level 6.6L, Aspartate Amino Transf (AST/SGOT) 226H, Alanine Aminotransferase (ALT/SGPT) 125H, Alkaline Phosphatase 72, Total Bilirubin 9.0H, Total Protein 5.9L, Albumin 1.7L, Ammonia 45H, Albumin/Globulin Ratio 0.40L CBC/BMP Laboratory Tests 11/27/18 04:26 Red Blood Count 2.84 L, Mean Corpuscular Volume 95.1, Mean Corpuscular Hemoglobin 31.7, Mean Corpuscular Hemoglobin Concent 33.3, Red Cell Distribution Width 21.3 H, Calcium Level 6.6 L, Aspartate Amino Transf (AST/SGOT) 226 H, Alanine Aminotransferase (ALT/SGPT) 125 H, Alkaline Phosphatase 72, Total Bilirubin 9.0 H, Total Protein 5.9 L, Albumin 1.7 L Microbiology Microbiology 11/26/18 Blood Culture, Received Pending 11/26/18 Blood Culture, Received Pending 11/23/18 Blood Culture - Preliminary, Resulted No Growth after 72 hours. All specime... 11/23/18 Blood Culture - Preliminary, Resulted No Growth after 72 hours. All specime... MARQUEZ HERNANDEZ MD Nov 27, 2018 11:31
[2018-11-27] MEDS ORDERED: LORazepam 2 MG/ML VIAL (J2060) IV PRN (13:45)
[2018-11-27] MEDS ORDERED: SCOPOLAMINE 1MG TRANSDERMAL PATCH TOP PRN (13:45)
[2018-11-27] MEDS ORDERED: PANTOPRAZOLE 40MG TAB (PROTONIX) PO SCH (21:00)
[2018-11-28] MEDS: MORPHINE 4 MG/ML 1ML VIAL/SYRINGE (J2270) IV PRN ×3 (03:55→16:24)
[2018-11-28] MEDS ORDERED: SPIRONOLACTONE 25 MG TAB PO SCH (09:00)
--- NOTE | 2018-11-28 12:36 | IPNPDOC ---
Subjective Date Seen The patient was seen on 11/28/18. Subjective Chief Complaint/HPI Patient seen and examined at the bedside. No acute overnight events noted. Objective Physical Examination General Exam: Positive: No Acute Distress Eye Exam: Positive: Sclera icteric ENT Exam: Positive: Atraumatic Chest Exam: Positive: Wheezing, Diminished; Negative: Rales Heart Exam: Positive: Tachycardic, Normal S1, Normal S2 Telemetry: Positive: Sinus Abdomen Exam: Positive: Hepatospenomegaly, Other (abdomen noted to be disten ded); Negative: Tenderness Extremity Exam: Negative: Tenderness Neuro Exam: Positive: Other Assessment /Plan Plan/VTE VTE Prophylaxis Ordered?: No VTE Exclusion Pharmacological: Bleeding Risk Plan Liver Failure, Cirrhosis 2/2 Alcohol Abuse Acute blood loss anemia due to acute upper GI bleed with hematemsis Alcohol Abuse, Withdrawal Chronic Hepatitis C Hepatic encephalopathy COPD without exacerbation Thrombocytopenia, Coagulopathy due to cirrhosis I had an extensive conversation with the patient's sister/HCP Nallely Holm at the bedside yesterday with RN Betina present. The patient's healthcare proxy states that the patient would not want any further medical treatment given his overall critical clinical condition, poor prognosis, and deteriorating status at this time. Mrs. Holm has decided to make the patient comfort measures only. Implications of this decision was discussed, and she verbalized understanding of the same. A MOLST form was signed, dated, and placed in the chart to reflect these wishes. All questions were answered to her satisfaction. VS, I&O, 24H, Fishbone Vital Signs/I&O Vital Signs Date Time Temp Pulse Resp B/P (MAP) Pulse Ox O2 Delivery O2 Flow Rate FiO2 11/28/18 09:50 18 11/27/18 12:00 98.2 104 122/89 (100) 94 Room Air I&O- Last 24 Hours up to 6 AM 11/28/18 06:00 Intake Total 668 ml Output Total 1500 ml Balance -832 ml Laboratory Data Microbiology Microbiology 11/26/18 Blood Culture - Preliminary, Resulted No growth after 24 hours . All specim... 11/26/18 Blood Culture - Preliminary, Resulted No growth after 24 hours . All specim... 11/23/18 Blood Culture - Preliminary, Resulted No Growth after 72 hours. All specime... 11/23/18 Blood Culture - Preliminary, Resulted MARQUEZ HERNANDEZ MD Nov 28, 2018 12:36
[2018-11-29] MEDS: MORPHINE 4 MG/ML 1ML VIAL/SYRINGE (J2270) IV PRN (06:43)
[2018-11-29] MEDS ORDERED: LORazepam 1 MG TAB PO PRN (10:45)
[2018-11-29] MEDS ORDERED: ONDANSETRON 4 MG ORAL DISINTEGRATING TAB (Q0162 PER 1MG) PO PRN (10:45)
[2018-11-29] MEDS: MORPHINE 10MG/0.5ML ORAL CONCENTRATE SOLUTION U/D SL PRN (12:33)
--- NOTE | 2018-11-29 14:35 | IPNPDOC ---
Subjective Date Seen The patient was seen on 11/29/18. Subjective Chief Complaint/HPI Patient seen and examined at the bedside. He remains obtunded and has had little by mouth intake. Objective Physical Examination General Exam: Positive: No Acute Distress Eye Exam: Positive: Sclera icteric ENT Exam: Positive: Atraumatic Chest Exam: Positive: Wheezing, Diminished Heart Exam: Positive: Tachycardic, Normal S1, Normal S2 Telemetry: Positive: Sinus Abdomen Exam: Positive: Hepatospenomegaly, Other Neuro Exam: Positive: Other Assessment /Plan Plan/VTE VTE Prophylaxis Ordered?: No VTE Exclusion Pharmacological: Bleeding Risk Plan Liver Failure, Cirrhosis 2/2 Alcohol Abuse Acute blood loss anemia due to acute upper GI bleed with hematemsis Alcohol Abuse, Withdrawal Chronic Hepatitis C Hepatic encephalopathy COPD without exacerbation Thrombocytopenia, Coagulopathy due to cirrhosis Patient Comfort Measures Only since 11/27/18. Hospice on board. We will continue to provide supportive care in the interim. VS, I&O, 24H, Fishbone Vital Signs/I&O Vital Signs Date Time Temp Pulse Resp B/P (MAP) Pulse Ox O2 Delivery O2 Flow Rate FiO2 11/29/18 06:53 18 11/27/18 12:00 98.2 104 122/89 (100) 94 Room Air I&O- Last 24 Hours up to 6 AM 11/29/18 06:00 Intake Total 550 ml Output Total 260 ml Balance 290 ml Laboratory Data Microbiology Microbiology 11/26/18 Blood Culture - Preliminary, Resulted No Growth after 48 hours. All Specime... 11/26/18 Blood Culture - Preliminary, Resulted No Growth after 48 hours. All Specime... 11/23/18 Blood Culture - Final, Complete NO GROWTH AFTER 5 DAYS 11/23/18 Blood Culture - Preliminary, Resulted MARQUEZ HERNANDEZ MD Nov 29, 2018 14:35
[2018-11-30] MEDS: MORPHINE 10MG/0.5ML ORAL CONCENTRATE SOLUTION U/D SL PRN ×3 (11:13→15:30)
--- NOTE | 2018-11-30 14:03 | IPNPDOC ---
Subjective Date Seen The patient was seen on 11/30/18. Subjective Chief Complaint/HPI Patient seen and examined at the bedside. He continues to remain obtunded and is having very minimal by mouth intake Objective Physical Examination General Exam: Positive: No Acute Distress Eye Exam: Positive: Sclera icteric ENT Exam: Positive: Atraumatic Chest Exam: Positive: Wheezing, Diminished Heart Exam: Positive: Tachycardic, Normal S1, Normal S2 Abdomen Exam: Positive: Hepatospenomegaly, Other Neuro Exam: Positive: Other Assessment /Plan Plan/VTE VTE Prophylaxis Ordered?: No VTE Exclusion Pharmacological: Bleeding Risk Plan Liver Failure, Cirrhosis 2/2 Alcohol Abuse Acute blood loss anemia due to acute upper GI bleed with hematemesis Alcohol Abuse, Withdrawal Chronic Hepatitis C Hepatic encephalopathy COPD without exacerbation Thrombocytopenia, Coagulopathy due to cirrhosis Patient Comfort Measures Only since 11/27/18. Hospice on board. We will continue to provide supportive care in the interim. VS, I&O, 24H, Fishbone Vital Signs/I&O Vital Signs Date Time Temp Pulse Resp B/P (MAP) Pulse Ox O2 Delivery O2 Flow Rate FiO2 11/30/18 10:18 117 20 98 11/30/18 10:17 2.0 11/27/18 12:00 98.2 122/89 (100) Room Air I&O- Last 24 Hours up to 6 AM 11/30/18 06:00 Intake Total 150 ml Output Total 1810 ml Balance -1660 ml Laboratory Data Microbiology Microbiology 11/26/18 Blood Culture - Preliminary, Resulted No Growth after 72 hours. All specime... 11/26/18 Blood Culture - Preliminary, Resulted No Growth after 72 hours. All specime... 11/23/18 Blood Culture - Final, Complete NO GROWTH AFTER 5 DAYS 11/23/18 Blood Culture - Preliminary, Resulted MARQUEZ HERNANDEZ MD Nov 30, 2018 14:03
--- NOTE | 2018-12-01 16:19 | DS.PDOC ---
Discharge Summary General Date of Admission Nov 23, 2018 at 20:56 Date of Discharge 11/30/18 Specialist/Consultants Involve Dr. Paulino and Dr. Franks of Pulmonary/Critical Care, Dr. Rodriguez of GI Discharge Summary PROCEDURES PERFORMED DURING STAY: None. 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 HISTORY OF PRESENT ILLNESS: . 48-year-old male patient with history of alcoholic liver cirrhosis (active alcohol use, CTP C, MELD - Na- 30, Decompansated with Hepatic encephalopathy, non complaint with medical care), chronic hepatitis C, COPD, was brought to the emergency room by his roommates, after he started having vomiting of blood and bloody diarrhea. The patient's sister states that he he has been actively drinking. Unfortunately during the patient's hospitalization his clinical condition did not significantly improve and he remained in critical condition. Given the patient's poor prognosis and critical condition the patient's healthcare proxy made the patient comfort measures only. The patient was pronounced at 7:15 PM on 11/30/18. DISPOSITION: 20 . TIME SPENT ON DISCHARGE: Greater than 30 minutes. Vital Signs/I&Os Vital Signs Date Time Temp Pulse Resp B/P (MAP) Pulse Ox O2 Delivery O2 Flow Rate FiO2 11/30/18 16:00 18 11/30/18 10:18 117 98 11/30/18 10:17 2.0 11/27/18 12:00 98.2 122/89 (100) Room Air I&O- Last 24 Hours up to 6 AM 12/01/18 06:00 Intake Total 180 ml Output Total 600 ml Balance -420 ml Laboratory Data Labs 24H Laboratory Tests 2 12/01/18 10:23: Lab Scanned Report Transfusion Record Microbiology Microbiology 11/26/18 Blood Culture - Final, Complete NO GROWTH AFTER 5 DAYS 11/26/18 Blood Culture - Final, Complete NO GROWTH AFTER 5 DAYS 11/23/18 Blood Culture - Final, Complete NO GROWTH AFTER 5 DAYS 11/23/18 Blood Culture - Preliminary, Resulted Discharge Medications Scheduled Folic Acid (Folic Acid) 1 Mg Tablet, 1 MG PO DAILY, (Reported) Furosemide (Furosemide) 20 Mg Tablet, 20 MG PO DAILY, (Reported) Magnesium Oxide (Magnesium Oxide) 250 Mg Tab, 250 MG PO DAILY, (Reported) Multivitamin (Multivitamins) 1 Each Tablet, 1 TAB PO DAILY, (Reported) Rifaximin (Xifaxan) 550 Mg Tablet, 550 MG PO BID, (Reported) Spironolactone (Spironolactone) 25 Mg Tablet, 25 MG PO DAILY, (Reported) Thiamine HCl (Thiamine HCl) 100 Mg Tab, 100 MG PO DAILY, (Reported) Miscellaneous Medications [Patient Comments] , (Reported) PATIENT IS A POOR MEDICATION HISTORIAN. RX LISTED ARE FOR ACTIVE PRESCRIPTIONS AT HIS PHARMACY, EXCEPT FOR THE OTC MEDICATIONS Allergies Coded Allergies: No Known Allergies (Verified , 07/23/18) MARQUEZ HERNANDEZ MD Dec 01, 2018 16:19
== END 2018-11-30 19:15 | disposition expired | DRG 280 ==
LOC: M ED 17:17 → M ED INP 20:56 → M ICU 22:05 → M MSPAV 11-27 16:34
PROVIDERS: ADMIT Internal Medicine; ATTEND Internal Medicine
PROC: 30233N1 Transfusion of Nonautologous Red Blood Cells into Peripheral Vein, Percutaneous Approach (ICD-10-PCS; 2018-11-23)
PROC: 02HV33Z Insertion of Infusion Device into Superior Vena Cava, Percutaneous Approach (ICD-10-PCS; principal; 2018-11-24)
PROC: 30233K1 Transfusion of Nonautologous Frozen Plasma into Peripheral Vein, Percutaneous Approach (ICD-10-PCS; 2018-11-24)
DX: K70.31 Alcoholic cirrhosis of liver with ascites (principal); J69.0 Pneumonitis due to inhalation of food and vomit; I85.01 Esophageal varices with bleeding; K92.0 Hematemesis; R57.1 Hypovolemic shock; E87.1 Hypo-osmolality and hyponatremia; D62 Acute posthemorrhagic anemia; R57.8 Other shock; D69.6 Thrombocytopenia, unspecified; K92.2 Gastrointestinal hemorrhage, unspecified; J44.9 Chronic obstructive pulmonary disease, unspecified; B18.2 Chronic viral hepatitis C; Z51.5 Encounter for palliative care; Z79.899 Other long term (current) drug therapy; Z91.14 Patient's other noncompliance with medication regimen; F17.200 Nicotine dependence, unspecified, uncomplicated; K70.40 Alcoholic hepatic failure without coma